=== PATIENT | female | born 1945 | race Caucasian/White ===

== ENCOUNTER 2017-06-22 14:30 | Emergency (ER) | payer MEDICARE, OTHER ==
[2017-06-22] MEDS ORDERED: NS 0.9% 1000 ML* 1,000 ML IV SCH (14:45)
[2017-06-22 15:02] LABS: Hematocrit 36 % (35-47); Hemoglobin 11.9 g/dl (12.0-16.0); Mean Corpuscular HGB Conc 34 g/dl (31-36); Mean Corpuscular Hemoglobin 31 pg (27-31); Mean Corpuscular Volume 92 fL (80-97); Mean Platelet Volume 8 um3 (7.4-10.4); Red Blood Count 3.88 10^6/ul (4.0-5.4); Red Cell Distribution Width 14 % (10.5-15); White Blood Count 12.1 10^3/ul (3.5-10.8)
--- NOTE | 2017-06-22 15:25 | RAD ---
Indication: Choking with hypoxia. No aspiration. History of scleroderma. Comparison: October 06, 2016 chest radiograph. April 30, 2011 chest radiograph. Technique: Upright AP 1450 hours Report: Tunneled LEFT chest wall central venous catheter with tip at level of the superior vena cava directed central. Severe prominence of the interstitial markings similar to the prior chest radiograph. New consolidation at the LEFT greater than RIGHT lung bases which may represent progression of interstitial disease or pneumonia. Grossly clear pleural spaces. Negative for pneumothorax. Negative for cardiomegaly. Unremarkable central pulmonary vasculature. Retrocardiac hiatal hernia. Extensive soft tissue calcifications most marked about the LEFT shoulder without significant interval change. IMPRESSION: 1. New alveolar consolidation at the LEFT greater than RIGHT lung base is concerning for pneumonia. 2. Interstitial lung disease and extensive soft tissue calcifications consistent with manifestations of scleroderma.
[2017-06-22 15:28] LABS: Albumin 4.3 g/dL (3.2-5.2); C Reactive Protein 1.87 mg/L (< 5.00); Calcium 8.9 mg/dL (8.6-10.3); EGFR African American 172.7 (>60); EGFR Non-African American 134.3 (>60); Globulin 3.2 g/dL (2-4); Potassium 3.7 mmol/L (3.5-5.0); Total Bilirubin 0.8 mg/dL (0.2-1.0); Total Protein 7.5 g/dL (6.4-8.9)
--- NOTE | 2017-06-22 17:09 | ED ---
Brisa Sullivan Thomas, scribed for Efra Glover MD on 06/22/17 at 1445 . Respiratory - HPI Summary HPI Summary: The pt is a 71 y/o F BIB EMS s/p aspiration of a magnesium pill. She was taking her medications while eating lunch when the pill became lodged in her respiratory tract. She denies that any food became lodged. Per EMS, the pill was not able to become dislodged by back thrusts of Heimlich maneuver. Per EMS, the patient was pretty close to becoming unresponsive in the field and she was talking very little, with her SpO2 in the low 80s. Per EMS, the SpO2 raised to 100 on nonrebreather mask. However, the patients condition improved en route to [facility] [place], and at time of examination she is talking with an occasional cough. - History of Current Complaint Stated Complaint: CHOKING Hx Obtained From: Patient Onset/Duration: Sudden Onset, Lasting Hours - shortly STATE MANAGER, Still Present Timing: Constant Character: Cough (Nonproductive) Aggravating Factor(s): Nothing Alleviating Factor(s): Nothing - Allergy/Home Medications Allergies/Adverse Reactions: Allergies Allergy/AdvReac Type Severity Reaction Status Date / Time Erythromycin Allergy Unknown Unknown Verified 05/07/17 16:01 Reaction Details Honey Allergy Unknown Unknown Verified 05/07/17 16:01 Reaction Details Denosumab [From Prolia] Allergy Rash Verified 05/07/17 16:01 Mouse Protein [From Prolia] Allergy Rash Verified 05/07/17 16:01 PMH/Surg Hx/FS Hx/Imm Hx Previously Healthy: No Endocrine/Hematology History: Reports: Hx Thyroid Disease - hypo, Other Endocrine/Hematological Disorders - hypo thyroidism Denies: Hx Diabetes Cardiovascular History: Reports: Hx Valvular Heart Disease - aortic stenosis, valve replacement 10/09, Other Cardiovascular Problems/Disorders - "LEAKY VALVE " Denies: Hx Hypertension, Hx Pacemaker/ICD Respiratory History: Reports: Other Respiratory Problems/Disorders - pulmonary HTN Denies: Hx Asthma, Hx Chronic Obstructive Pulmonary Disease (COPD) GI History: Reports: Hx Gastrointestinal Bleed, Other GI Disorders - " 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 Denies: Hx Ulcer History: Reports: Other Problems/Disorders Denies: Hx Dialysis, Hx Renal Disease Musculoskeletal History: Reports: Hx Osteoporosis, Other Musculoskeletal History - clavical fx, raynauds, sclera derma, Denies: Hx Back Problems Sensory History: Reports: Hx Contacts or Glasses - reading glasses only Denies: Hx Cataracts, Hx Deafness, Hx Hearing Aid Opthamlomology History: Reports: Hx Contacts or Glasses - reading glasses only Denies: Hx Cataracts Neurological History: Reports: Hx Headaches, Hx Migraine, Other Neuro Impairments/Disorders - scleroderma Denies: Hx Dementia, Hx Seizures, Hx Transient Ischemic Attacks (TIA) Psychiatric History: Denies: Hx Panic Disorder - Cancer History Hx Chemotherapy: No Hx Radiation Therapy: No - Surgical History Surgery Procedure, Year, and Place: hands surgeries - JOINT FUSION & PINS ( PINS REMOVED) , TONSILECTOMY. growth in bladder removed, INFUSA PORT. AORTIC VALVE REPLACEMENT -MEDTRONIC -EVOLUTR- 29- SERIAL # [id number] - CORE VALVE EVOLUT R- TRANCATHETER AORTIC VALVE - CALL FOR MRI INFO [phone] ( OP NOTE SCANNED INTO PT'S EMR)SAFE TO 3T Hx Anesthesia Reactions: No Infectious Disease History: Reports: Hx Shingles Denies: Hx Clostridium Difficile, Hx Hepatitis, Hx Human Immunodeficiency Virus (HIV), Hx of Known/Suspected MRSA, Hx Tuberculosis, Hx Known/Suspected VRE , Hx Known/Suspected VRSA, History Other Infectious Disease - Family History Known Family History: Positive: Other - POS: [place] - Social History Alcohol Use: Occasionally Alcohol Amount: wine Substance Use Type: Reports: None Smoking Status (MU): Never Smoked Tobacco Have You Smoked in the Last Year: No Review of Systems Positive: Cough, Other - POS: aspiration of magnesium pill Neurological: Other - POS: minimally responsive en route to [facility], per EMS All Other Systems Reviewed And Are Negative: Yes Physical Exam Triage Information Reviewed: Yes Vital Signs On Initial Exam: Temp 99.1, HR 66, RR 16, SaO2 99, BP 128/65 Vital Signs Reviewed: Yes Appearance: Positive: Well-Appearing, No Pain Distress, Well-Nourished Skin: Positive: Warm, Skin Color Reflects Adequate Perfusion, Dry Head/Face: Positive: Normal Head/Face Inspection Eyes: Positive: EOMI, MIGUEL ANGEL ENT: Positive: Normal ENT inspection Neck: Positive: Supple, Nontender Respiratory/Lung Sounds: Positive: Clear to Auscultation, Breath Sounds Present - on both sides, Stridor - minimal, Other - She is in mild respiratory distress. She can talk. Cardiovascular: Positive: RRR Abdomen Description: Positive: Nontender, Soft Musculoskeletal: Positive: Normal, Strength/ROM Intact Neurological: Positive: Normal, Sensory/Motor Intact, Alert, Oriented to Person Place, Time Psychiatric: Positive: Affect/Mood Appropriate Diagnostics - Vital Signs Temp 99.1, HR 66, RR 16, SaO2 99, BP 128/65 - Laboratory Lab Results: Lab Results 06/22/17 06/22/17 06/22/17 Range/Units 14:50 14:50 14:50 WBC 12.1 H (3.5-10.8) 10^3/ul RBC 3.88 L (4.0-5.4) 10^6/ul Hgb 11.9 L (12.0-16.0) g/dl Hct 36 (35-47) % MCV 92 (80-97) fL MCH 31 (27-31) pg MCHC 34 (31-36) g/dl RDW 14 (10.5-15) % Plt Count 301 (150-450) 10^3/ul MPV 8 (7.4-10.4) um3 Neut % (Auto) 77.6 (38-83) % Lymph % (Auto) 12.3 L (25-47) % Glascock % (Auto) 5.4 (1-9) % Eos % (Auto) 3.9 (0-6) % Baso % (Auto) 0.8 (0-2) % Absolute Neuts (auto) 9.4 H (1.5-7.7) 10^3/ul Absolute Lymphs (auto) 1.5 (1.0-4.8) 10^3/ul Absolute Monos (auto) 0.7 (0-0.8) 10^3/ul Absolute Eos (auto) 0.5 (0-0.6) 10^3/ul Absolute Basos (auto) 0.1 (0-0.2) 10^3/ul Absolute Nucleated RBC 0 10^3/ul Nucleated RBC % 0 INR (Anticoag Therapy) 1.02 (0.89-1.11) APTT 31.2 (26.0-36.3) seconds Sodium 136 (133-145) mmol/L Potassium 3.7 (3.5-5.0) mmol/L Chloride 103 (101-111) mmol/L Carbon Dioxide 23 (22-32) mmol/L Anion Gap 10 (2-11) mmol/L BUN 17 (6-24) mg/dL Creatinine 0.46 L (0.51-0.95) mg/dL Est GFR ( Amer) 172.7 (>60) Est GFR (Non-Af Amer) 134.3 (>60) BUN/Creatinine Ratio 37.0 H (8-20) Glucose 96 (70-100) mg/dL Lactic Acid (0.5-2.0) mmol/L Calcium 8.9 (8.6-10.3) mg/dL Total Bilirubin 0.80 (0.2-1.0) mg/dL AST 26 (13-39) U/L ALT 14 (7-52) U/L Alkaline Phosphatase 65 (34-104) U/L C-Reactive Protein 1.87 (< 5.00) mg/L Total Protein 7.5 (6.4-8.9) g/dL Albumin 4.3 (3.2-5.2) g/dL Globulin 3.2 (2-4) g/dL Albumin/Globulin Ratio 1.3 (1-3) 06/22/17 Range/Units 14:50 WBC (3.5-10.8) 10^3/ul RBC (4.0-5.4) 10^6/ul Hgb (12.0-16.0) g/dl Hct (35-47) % MCV (80-97) fL MCH (27-31) pg MCHC (31-36) g/dl RDW (10.5-15) % Plt Count (150-450) 10^3/ul MPV (7.4-10.4) um3 Neut % (Auto) (38-83) % Lymph % (Auto) (25-47) % Glascock % (Auto) (1-9) % Eos % (Auto) (0-6) % Baso % (Auto) (0-2) % Absolute Neuts (auto) (1.5-7.7) 10^3/ul Absolute Lymphs (auto) (1.0-4.8) 10^3/ul Absolute Monos (auto) (0-0.8) 10^3/ul Absolute Eos (auto) (0-0.6) 10^3/ul Absolute Basos (auto) (0-0.2) 10^3/ul Absolute Nucleated RBC 10^3/ul Nucleated RBC % INR (Anticoag Therapy) (0.89-1.11) APTT (26.0-36.3) seconds Sodium (133-145) mmol/L Potassium (3.5-5.0) mmol/L Chloride (101-111) mmol/L Carbon Dioxide (22-32) mmol/L Anion Gap (2-11) mmol/L BUN (6-24) mg/dL Creatinine (0.51-0.95) mg/dL Est GFR ( Amer) (>60) Est GFR (Non-Af Amer) (>60) BUN/Creatinine Ratio (8-20) Glucose (70-100) mg/dL Lactic Acid 1.7 (0.5-2.0) mmol/L Calcium (8.6-10.3) mg/dL Total Bilirubin (0.2-1.0) mg/dL AST (13-39) U/L ALT (7-52) U/L Alkaline Phosphatase (34-104) U/L C-Reactive Protein (< 5.00) mg/L Total Protein (6.4-8.9) g/dL Albumin (3.2-5.2) g/dL Globulin (2-4) g/dL Albumin/Globulin Ratio (1-3) Result Diagrams: 06/22/17 14:50 06/22/17 14:50 Lab Statement: Any lab studies that have been ordered have been reviewed, and results considered in the medical decision making process. - Radiology CXR Xray Interpretation: Positive (See Comments) - shows 1. New alveolar consolidation at the LEFT greater than RIGHT lung base is concerning for pneumonia. 2. Interstitial lung disease and extensive soft tissue calcifications consistent with manifestations of scleroderma. Radiology Interpretation Completed By: Radiologist Disposition - Course Course Of Treatment: PATIENT HAD A SECOND HYPOXIC EPISODE IN THE ED THEN IMPROVED BACK TO NORMAL. PATIENT FEELS SHE FINALLY COUGHED UP THE PILL AND THEN SWALLOWED IT. DRANK WATER AND AMBULATED IN ED, BACK TO NORMAL AND WISHES TO GO HOME. - Diagnoses Provider Diagnoses: Aspiration of foreign body Discharge - Discharge Plan Condition: Stable Disposition: HOME Patient Education Materials: Aspiration Precautions (ED) Referrals: Destiny Bird MD [Primary Care Provider] - Additional Instructions: FOLLOW UP WITH YOUR DOCTOR. RETURN TO THE EMERGENCY DEPARTMENT FOR ANY WORSENING OF YOUR CONDITION; CHEST PAIN, SHORTNESS OF BREATH, YOU FEEL ILL OR QUESTIONS OR CONCERNS. The documentation as recorded by the Brisa jacobson Thomas accurately reflects the service I personally performed and the decisions made by me, Efra Glover MD.
[2017-06-22 17:16] VITALS: BP 122/60
== END 2017-06-22 17:16 | disposition home or self-care (01) ==
LOC: ED 14:30
DX: T17.998A Other foreign object in respiratory tract, part unspecified causing other injury, initial encounter (principal); R05 Cough; X58.XXXA Exposure to other specified factors, initial encounter; Y93.9 Activity, unspecified; Y92.89 Other specified places as the place of occurrence of the external cause; Z86.79 Personal history of other diseases of the circulatory system
CPT/HCPCS: 36415; 71010; 80053; 83605; 85025; 85610; 85730; 86140; 99283

== ENCOUNTER 2018-05-03 14:22 | Emergency (ER) | payer MEDICARE, OTHER ==
[2018-05-03 15:03] VITALS: BP 113/75
--- NOTE | 2018-05-03 15:30 | UC ---
Rachid Sullivan Elizabeth, scribed for Efra Glover MD on 05/03/18 at 1519 . Eye Complaint HPI - HPI Summary HPI Summary: This patient is a 72 year old F presenting to [facility] with a chief complaint of red lower eyelid swelling, redness, and pain since 3 days ago. The patient denies any trauma. The patient rates the pain 1/10 in severity. Symptoms aggravated by nothing. Symptoms alleviated by nothing. Patient denies any crusting, rhinorrhea, or drainage. Patient has a hx of scleroderma. - History of Current Complaint Chief Complaint: UCEye Stated Complaint: EYE COMPLAINT Time Seen by Provider: 05/03/18 15:10 Hx Obtained From: Patient Onset/Duration: Sudden Onset, Lasting Days - 3 days, Still Present Timing: Constant Severity Initially: Mild Severity Currently: Mild Pain Intensity: 1 Pain Scale Used: 0-10 Numeric Location of Injury: Eye Lid (lower) Aggravating Factor(s): Nothing Alleviating Factor(s): Nothing Associated Signs And Symptoms: Positive: Swelling. Negative: Drainage (Clear), Drainage (Purulent) - Allergies/Home Medications Allergies/Adverse Reactions: Allergies Allergy/AdvReac Type Severity Reaction Status Date / Time erythromycin base Allergy Unknown Unknown Verified 05/03/18 15:03 Reaction Details denosumab Allergy Rash Verified 05/03/18 15:03 honey Allergy Unknown Verified 05/03/18 15:03 Reaction Details Home Medications: Home Medications Zolpidem TAB* [Ambien*] 05/03/18 [History] PMH/Surg Hx/FS Hx/Imm Hx - Additional Past Medical History Additional PMH: scleroderma - Surgical History Surgical History: Yes Surgery Procedure, Year, and Place: hands surgeries - JOINT FUSION & PINS ( PINS REMOVED) , TONSILECTOMY. growth in bladder removed, INFUSA PORT. AORTIC VALVE REPLACEMENT -MEDTRONIC -EVOLUTR- 29-US SERIAL # [id number] - CORE VALVE EVOLUT R- TRANCATHETER AORTIC VALVE - CALL FOR MRI INFO [phone] ( OP NOTE SCANNED INTO PT'S EMR)SAFE TO 3T - Family History Known Family History: Positive: Other - POS: [place] Family History: NON CONTRIBUTORY - Social History Alcohol Use: Occasionally Alcohol Amount: wine Substance Use Type: None Smoking Status (MU): Never Smoked Tobacco Have You Smoked in the Last Year: No - Immunization History Most Recent Influenza Vaccination: 06/2016 Most Recent Tetanus Shot: unk Most Recent Pneumonia Vaccination: 06/2015 Review of Systems Skin: Other - right lower eyelid swelling Eyes: Negative - negative drainage, Eye Redness - right lower eyelid redness ENT: Negative - negative rhinorrhea Respiratory: Negative - negative cough All Other Systems Reviewed And Are Negative: Yes Physical Exam - Summary Physical Exam Summary: General: well-appearing, no pain distress Skin: warm, color reflects adequate perfusion, dry Head: normal Eyes: EOMI, MIGUEL ANGEL, right lower eyelid erythema and swelling, no active drainage, no scleral injection, no hyphema. The area of erythema is 1cm by 4cm ENT: normal Neck: supple, nontender Respiratory: CTA, breath sounds present Cardiovascular: RRR Abdomen: soft, nontender Bowel: present Musculoskeletal: normal, strength/ROM intact Neurological: sensory/motor intact, A&O x3 Psychological: affect/mood appropriate Triage Information Reviewed: Yes Vital Signs: Initial Vital Signs Temp 99.7 F 05/03/18 14:55 Pulse 61 05/03/18 14:55 Resp 18 05/03/18 14:55 BP 113/75 05/03/18 14:55 Pulse Ox 98 05/03/18 14:55 Vital Signs Reviewed: Yes Eye Complaint Course/Dx - Course Course Of Treatment: F/U PMD OR OPHTHALMOLOGY IF NOT IMPROVED; RECHECK SOONER IF WORSE. - Differential Dx/Diagnosis Provider Diagnoses: RIGHT LOWER EYE LID STYE Discharge - Sign-Out/Discharge Documenting (check all that apply): Discharge/Admit/Transfer - Discharge Plan Condition: Stable Disposition: HOME Discharge Disposition Comment: discharge home Prescriptions: Sulfacetamide 10 % OPTH.EDWIN* [Sulamyd 10% Opth*] 1 drop RIGHT EYE Q4H #1 btl Patient Education Materials: Billy (ED) Referrals: Destiny Bird MD [Primary Care Provider] - Additional Instructions: FOLLOW UP WITH YOUR DOCTOR OR OPHTHALMOLOGY IF NOT COMPLETELY IMPROVED. GET RECHECKED FOR ANY WORSENING OF YOUR CONDITION OR QUESTIONS OR CONCERNS. - Billing Disposition and Condition Condition: STABLE Disposition: Home The documentation as recorded by the Rachid jacobson Elizabeth accurately reflects the service I personally performed and the decisions made by me, Efra Glover MD.
== END 2018-05-03 15:30 | disposition home or self-care (01) ==
LOC: UCEAST 14:22
DX: H00.022 Hordeolum internum right lower eyelid (principal); Z91.018 Allergy to other foods; Z88.1 Allergy status to other antibiotic agents; Z88.8 Allergy status to other drugs, medicaments and biological substances
CPT/HCPCS: 99212; G0463

== ENCOUNTER 2019-04-13 17:42 | Emergency (ER) | payer MEDICARE, OTHER ==
--- NOTE | 2019-04-13 18:15 | UC ---
UC General HPI - HPI Summary HPI Summary: 73-year-old woman comes in with a chief complaint of feeling weak and not well all day. She does have chest congestion. She also gets recurrent cellulitis. She has some anterior left knee pain and skin. She has scleroderma. Feels lightheaded when she tries to stand up. She's had some chills. - History of Current Complaint Chief Complaint: UCDizziness Stated Complaint: DIZZY, NO APPETITE, HIGH BP Time Seen by Provider: 04/13/19 17:57 Hx Last Menstrual Period: post Pain Intensity: 0 - Allergy/Home Medications Allergies/Adverse Reactions: Allergies Allergy/AdvReac Type Severity Reaction Status Date / Time erythromycin base Allergy Unknown Unknown Verified 03/29/19 14:13 Reaction Details denosumab Allergy Rash Verified 03/29/19 14:13 honey Allergy Unknown Verified 03/29/19 14:13 Reaction Details PMH/Surg Hx/FS Hx/Imm Hx Previously Healthy: No - sceloderma Endocrine History: Hypothyroidism GI/ History: Gastroesophageal Reflux - Surgical History Surgical History: Yes Surgery Procedure, Year, and Place: hands surgeries - JOINT FUSION & PINS ( PINS REMOVED) , TONSILECTOMY. growth in bladder removed, INFUSA PORT. AORTIC VALVE REPLACEMENT -MEDTRONIC -EVOLUTR- 29-US SERIAL # [id number] - CORE VALVE EVOLUT R- TRANCATHETER AORTIC VALVE - CALL FOR MRI INFO [phone] ( OP NOTE SCANNED INTO PT'S EMR)SAFE TO 3T - Family History Known Family History: Positive: Other - POS: [place] Family History: NON CONTRIBUTORY - Social History Alcohol Use: Daily Alcohol Amount: wine Substance Use Type: None Smoking Status (MU): Former Smoker Have You Smoked in the Last Year: No - Immunization History Most Recent Influenza Vaccination: 06/2016 Most Recent Tetanus Shot: unk Most Recent Pneumonia Vaccination: 06/2015 Review of Systems All Other Systems Reviewed And Are Negative: Yes Constitutional: Positive: Chills, Fatigue Skin: Positive: Rash Eyes: Positive: Negative ENT: Positive: Negative Respiratory: Positive: Cough, Other - see hpi Cardiovascular: Positive: Negative Gastrointestinal: Positive: Abdominal Pain - mild diffuse, Nausea Genitourinary: Positive: Negative Motor: Positive: Decreased ROM - chronic from scleroderma Neurovascular: Positive: Negative Musculoskeletal: Positive: Decreased ROM - chronic from scleroderma Neurological: Positive: Negative Psychological: Positive: Negative Is Patient Immunocompromised?: No Physical Exam Triage Information Reviewed: Yes Appearance: No Pain Distress, Ill-Appearing - mild, Thin Vital Signs: Initial Vital Signs Temp 100.7 F 04/13/19 17:54 Pulse 70 04/13/19 17:54 Resp 16 04/13/19 17:54 BP 101/53 04/13/19 17:54 Pulse Ox 94 04/13/19 17:54 Vital Signs Reviewed: Yes Eye Exam: Normal ENT: Negative: Muffled voice, Hoarse voice Neck: Positive: Supple Respiratory: Positive: No respiratory distress, Rhonchi Cardiovascular: Positive: RRR Abdomen Description: Positive: Soft Bowel Sounds: Positive: Present Musculoskeletal: Positive: Other: - chronic scleroderma contractions Neurological: Positive: Alert Psychological: Positive: Age Appropriate Behavior Skin: Positive: Other - left knee anterior 2cm erythema Course/Dx - Course Course Of Treatment: C/O sepsis. To ED via Ambulance - Diagnoses Provider Diagnosis: Hypotension, Fever Discharge - Sign-Out/Discharge Documenting (check all that apply): Patient Departure All imaging exams completed and their final reports reviewed: No Studies - Discharge Plan Condition: Stable Disposition: TRANS HIGHER LVL OF CARE FAC Referrals: Destiny Bird MD [Primary Care Provider] - Additional Instructions: GO DIRECTLY TO THE EMERGENCY DEPARTMENT FOR FURTHER EVALUATION. - Billing Disposition and Condition Condition: STABLE Disposition: Trans Higher Lvl of Care Fac
[2019-04-13] MEDS ORDERED: NS 0.9% 1000 ML** 1,000 ML IV ONE (18:26)
[2019-04-13 18:35] VITALS: BP 95/42
[2019-04-13] MEDS ORDERED: Ibuprofen ADULT LIQ* 600 MG/30 ML UDC PO ONE (18:41)
== END 2019-04-13 19:02 | disposition short-term general hospital (02) ==
LOC: UCEAST 17:42
DX: I95.9 Hypotension, unspecified (principal); R50.9 Fever, unspecified; Z87.891 Personal history of nicotine dependence
CPT/HCPCS: 96360; 99213; A9270-GY; G0463

== ENCOUNTER 2019-04-13 19:10 | Inpatient (IN) | payer MEDICARE, OTHER ==
[2019-04-13] MEDS ORDERED: Acetaminophen TAB* 325 MG PO ONE (19:46)
[2019-04-13] MEDS ORDERED: Piperacillin/Tazobac ADVAN(*) 3.375 GM in NS 0.9% 100 ML* 100 ML IVPB ONE (19:47)
[2019-04-13] MEDS ORDERED: NS 0.9% IV ONE (19:47)
--- NOTE | 2019-04-13 19:56 | ED ---
Neurological HPI - HPI Summary HPI Summary: A 73 y/o female brought in by [facility] presents to [facility] with a chief complaint of weakness since this morning. She notes that she lost her appetite and has low energy. She also c/o fever, SOB and chest congestion but denies N/V/ D. She reports a Hx of Scleroderma and Stroke. She claims that she had her stroke when she was having an aortic valve replacement with a pig valve, and her speech has suffered but has been improving since the incident in 2014. She takes Plavix and denies taking Prednisone. She reports that she used to go to a clinic at [facility], but stopped going because it was not alleviating her symptoms. - History of Current Complaint Chief Complaint: EDWeakness Stated Complaint: WEAKNESS/LOSS OF APPETITE PER EMS Time Seen by Provider: 04/13/19 19:25 Hx Obtained From: Patient, Family/Animal Physiologist, EMS Hx Last Menstrual Period: post Onset/Duration: Sudden Onset, Started hours ago, Still Present Timing: Constant Onset Severity: Mild Current Severity: Mild Pain Intensity: 0 Pain Scale Used: 0-10 Numeric Character: Weak Aggravating: Nothing Alleviating: Nothing Associated Signs and Symptoms: Positive: Fever, Shortness of Breath - Additional Pertinent History Primary Care Physician: [id number] - Allergy/Home Medications Allergies/Adverse Reactions: Allergies Allergy/AdvReac Type Severity Reaction Status Date / Time erythromycin base Allergy Unknown Unknown Verified 04/13/19 19:23 Reaction Details denosumab Allergy Rash Verified 04/13/19 19:23 honey Allergy Unknown Verified 04/13/19 19:23 Reaction Details PMH/Surg Hx/FS Hx/Imm Hx Endocrine/Hematology History: Reports: Hx Thyroid Disease - hypo, Other Endocrine/Hematological Disorders - hypo thyroidism Denies: Hx Diabetes Cardiovascular History: Reports: Hx Valvular Heart Disease - aortic stenosis, valve replacement 10/09, Other Cardiovascular Problems/Disorders - "LEAKY VALVE " Denies: Hx Hypertension, Hx Pacemaker/ICD Respiratory History: Reports: Other Respiratory Problems/Disorders - pulmonary HTN Denies: Hx Asthma, Hx Chronic Obstructive Pulmonary Disease (COPD) GI History: Reports: Hx Gastrointestinal Bleed, Other GI Disorders - " 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 Denies: Hx Ulcer History: Reports: Other Problems/Disorders Denies: Hx Dialysis, Hx Renal Disease Musculoskeletal History: Reports: Hx Osteoporosis, Other Musculoskeletal History - clavical fx, raynauds, sclera derma, Denies: Hx Back Problems Sensory History: Reports: Hx Contacts or Glasses - reading glasses only Denies: Hx Cataracts, Hx Deafness, Hx Hearing Aid Opthamlomology History: Reports: Hx Contacts or Glasses - reading glasses only Denies: Hx Cataracts Neurological History: Reports: Hx Headaches, Hx Migraine, Other Neuro Impairments/Disorders - scleroderma Denies: Hx Dementia, Hx Seizures, Hx Transient Ischemic Attacks (TIA) Psychiatric History: Denies: Hx Panic Disorder - Cancer History Hx Chemotherapy: No Hx Radiation Therapy: No - Surgical History Surgery Procedure, Year, and Place: hands surgeries - JOINT FUSION & PINS ( PINS REMOVED) , TONSILECTOMY. growth in bladder removed, [facility]. AORTIC VALVE REPLACEMENT -MEDTRONIC -EVOLUTR- 29- SERIAL # [id number] - CORE VALVE EVOLUT R- TRANCATHETER AORTIC VALVE - CALL FOR MRI INFO [phone] ( OP NOTE SCANNED INTO PT'S EMR)SAFE TO 3T Hx Anesthesia Reactions: No Infectious Disease History: No Infectious Disease History: Reports: Hx Shingles Denies: Hx Clostridium Difficile, Hx Hepatitis, Hx Human Immunodeficiency Virus (HIV), Hx of Known/Suspected MRSA, Hx Tuberculosis, Hx Known/Suspected VRE , Hx Known/Suspected VRSA, History Other Infectious Disease, Traveled Outside the in Last 30 Days - Family History Known Family History: Positive: Cardiac Disease, Other - POS: [place] - Social History Alcohol Use: Daily Alcohol Amount: wine Substance Use Type: Reports: None Hx Tobacco Use: No Smoking Status (MU): Former Smoker Have You Smoked in the Last Year: No Review of Systems Positive: Fever, Fatigue, Other - positive: loss of appetite Positive: Shortness Of Breath, Other - positive: "chest congestion" Negative: Vomiting, Diarrhea, Nausea All Other Systems Reviewed And Are Negative: Yes Physical Exam - Summary Physical Exam Summary: VITAL SIGNS: Reviewed. GENERAL: Patient is a skinny FEMALE who is lying comfortable in the stretcher. Patient is not in any acute respiratory distress. HEAD AND FACE: No signs of trauma. No ecchymosis, hematomas or skull depressions. No sinus tenderness. EYES: PERRLA, EOMI x 2, No injected conjunctiva, no nystagmus. EARS: Hearing grossly intact. Ear canals and tympanic membranes are within normal limits. MOUTH: Oropharynx within normal limits. NECK: Supple, trachea is midline, no adenopathy, no JVD, no carotid bruit, no c- spine tenderness, neck with full ROM CHEST: Symmetric, no tenderness at palpation LUNGS: Clear to auscultation bilaterally. No wheezing or crackles. CVS: Regular rate and rhythm, S1 and S2 present, no murmurs or gallops appreciated. ABDOMEN: Soft, non-tender. No signs of distention. No rebound no guarding, and no masses palpated. Bowel sounds are normal. EXTREMITIES: multiple amputations of distal phalanx of hands, FROM in all major joints, no edema, no cyanosis or clubbing. NEURO: Alert and oriented x 3. No acute neurological deficits. Speech is normal and follows commands. SKIN: Dry and warm Triage Information Reviewed: Yes Vital Signs On Initial Exam: Initial Vitals Pulse BP Pulse Ox 64 89/48 96 04/13/19 19:19 04/13/19 19:19 04/13/19 19:19 Vital Signs Reviewed: Yes Diagnostics - Vital Signs Vital Signs Temp Pulse Resp BP Pulse Ox 04/13/19 19:21 100.2 F 60 19 90/47 99 04/13/19 19:19 64 89/48 96 - Laboratory Result Diagrams: 04/13/19 20:13 04/13/19 20:13 Lab Statement: Any lab studies that have been ordered have been reviewed, and results considered in the medical decision making process. - Radiology CXR Radiology Interpretation Completed By: ED Physician Summary of Radiographic Findings: Dense calcification with chronic interstitial lung disease consistent with scleroderma, no change from previous. Pending official imaging report. - CT Chest/abdomen/pelvis CT Interpretation Completed By: Radiologist Summary of CT Findings: Chest impression: 1. Multifocal right lung pneumonia. 2. Left lower lobe aspiration. 3. Enlarged left supraclavicular lymph nodes which may be reactive to the. chronic calcific process involving the joints. 4. Extensive calcific bursitis. Abdomen/pelvis impression: 1. Small bowel obstruction with transition at the terminal ileum. No. perforation or ischemia. 2. Bosniak type II renal cysts. No followup indicated. 3. Distal colonic diverticulosis. 4. Anterior thigh soft tissue ossifications possibly calcific tendinitis. ED physician has reviewed this imaging report. - EKG 19:57 Cardiac Rate: NL - 65 bpm EKG Rhythm: Sinus Rhythm Summary of EKG Findings: NSR at 65 bpm with LBBB which is old. Re-Evaluation - Re-Evaluation First Eval Re-Evaluation Time: 23:35 Change: Unchanged Comment: Discussed results and plan for admission. Course/Dx - Course Course Of Treatment: A 73 y/o female brought in by [facility] presents to [facility] with a chief complaint of weakness since this morning. The physical exam revealed that the patient was a skinny lady and has multiple amputations of distal phalanx of hands. EKG at 19:57 showed NSR at 65 bpm with LBBB which is old. CXR showed dense calcification with chronic interstitial lung disease consistent with scleroderma, no change from previous. Bloodwork, chemistries and urines obtained. WBC 34.3. In the ED course the patient was given Vancomycin IV, Tylenol PO, Piperacillin Sod/Tazobactam Sod IV and Sodium Chloride IV. Chest/abdomen/pelvis impression: Chest impression: 1. Multifocal right lung pneumonia. 2. Left lower lobe aspiration. 3. Enlarged left supraclavicular lymph nodes which may be reactive to the. chronic calcific process involving the joints. 4. Extensive calcific bursitis. Abdomen/pelvis impression: 1. Small bowel obstruction with transition at the terminal ileum. No. perforation or ischemia. 2. Bosniak type II renal cysts. No followup indicated. 3. Distal colonic diverticulosis. 4. Anterior thigh soft tissue ossifications possibly calcific tendinitis. The patient has no signs or symptoms of SBOs so she will not be treated for that but the patient got abx for PNA. Discussed case with Dr. Son, hospitalist, who accepted the patient for admission. The patient is agreeable with this plan. - Diagnoses Provider Diagnoses: Pneumonia - Physician Notifications Discussed Care Of Patient With: Jannette Sno Time Discussed With Above Provider: 23:31 Instructed by Provider To: Admit As Inpatient Discharge - Sign-Out/Discharge Documenting (check all that apply): Patient Departure - admit Patient Received Moderate/Deep Sedation with Procedure: No - Discharge Plan Condition: Fair Disposition: ADMITTED TO [facility] - Billing Disposition and Condition Condition: FAIR Disposition: Admitted to [facility] - Attestation Statements Document Initiated by Scribe: Yes Documenting Scribe: Vincent Peters Provider For Whom Scribe is Documenting (Include Credential): Chapincito Loomis MD Scribe Attestation: I, Vincent Peters, scribed for Chapincito Loomis MD on 04/14/19 at 0640. Scribe Documentation Reviewed: Yes Provider Attestation: The documentation as recorded by the steveeVincent accurately reflects the service I personally performed and the decisions made by me, Chapincito Loomis MD Status of Scribe Document: Viewed
[2019-04-13 20:23] LABS: Hematocrit 32 % (35-47); Hemoglobin 10.5 g/dL (12.0-16.0); Mean Corpuscular HGB Conc 33 g/dL (31-36); Mean Corpuscular Hemoglobin 29 pg (27-31); Mean Corpuscular Volume 89 fL (80-97); Mean Platelet Volume 7.5 fL (7.4-10.4); Platelet Count 317 10^3/uL (150-450); Red Blood Count 3.57 10^6 /uL (3.70-4.87); Red Cell Distribution Width 15 % (10-15); White Blood Count 34.3 10^3/uL (3.5-10.8)
[2019-04-13] MEDS ORDERED: Vancomycin(*) 1,000 MG in NS 0.9% 250 ML* 250 ML IVPB ONE (20:29)
[2019-04-13 20:32] LABS: Activated Partial Thrombo Time 33.6 seconds (26.0-38.0); INR 1.23 (0.82-1.09)
[2019-04-13 20:41] LABS: ABS Lymphocytes 0.7 10^3/ul (1.0-4.8); ABS Neutrophils 32.6 10^3/ul (1.5-7.7); Lymphocyte % 1.9 %
[2019-04-13 20:44] LABS: Troponin I 0.01 ng/mL (<0.04)
[2019-04-13 20:45] LABS: Albumin 3.3 g/dL (3.2-5.2); Albumin/Globulin Ratio 0.9 (1-3); BUN/Creatinine Ratio 35.6 (8-20); Calcium 8.1 mg/dL (8.6-10.3); EGFR African American 121.2 (>60); EGFR Non-African American 100.2 (>60); Globulin 3.6 g/dL (2-4); Potassium 3.7 mmol/L (3.5-5.0); Total Bilirubin 1.3 mg/dL (0.2-1.0); Total Protein 6.9 g/dL (6.4-8.9)
[2019-04-13] MEDS ORDERED: Iohexol 300* (CONTRAST) 10 ML SDV IV ONE (20:59)
[2019-04-13 21:09] LABS: C Reactive Protein 76.18 mg/L (<8.01)
[2019-04-13] MEDS ORDERED: NS 0.9% 1000 ML** 1,000 ML IV ONE (22:05)
[2019-04-13 23:40] LABS: Urine Appearance Clear; Urine Bilirubin Negative (Negative); Urine Blood Negative (Negative); Urine Color Yellow; Urine Glucose Negative (Negative); Urine Ketones Negative (Negative); Urine Nitrite Negative (Negative); Urine Protein Negative (Negative); Urine Specific Gravity 1.041 (1.010-1.030); Urine Urobilinogen Negative (Negative)
[2019-04-14] MEDS ORDERED: NS 0.9% 1000 ML** 1,000 ML IV ONE (00:16)
--- NOTE | 2019-04-14 00:48 | PN ---
Sepsis Event Evaluation Date of Evaluation: 04/14/19 Time of Evaluation: 12:31 Current Stage of Sepsis: Septic Shock Vital Signs - Last 12 Hours: Vital Signs - 12 hr Temp Pulse Resp BP Pulse Ox 04/14/19 00:38 98.3 F 65 22 102/54 95 04/14/19 00:19 53 16 102/54 95 04/14/19 00:00 55 23 90 04/13/19 23:49 53 17 103/54 96 04/13/19 23:19 57 18 113/60 90 04/13/19 23:00 57 24 94 04/13/19 22:49 57 23 105/64 93 04/13/19 22:45 98.3 F 04/13/19 22:26 64 19 99/52 93 04/13/19 22:00 61 18 96 04/13/19 21:49 64 24 102/54 91 04/13/19 21:20 62 15 89/46 95 04/13/19 21:00 63 20 94 04/13/19 20:50 99.4 F 04/13/19 20:49 61 14 96/51 95 04/13/19 20:33 98 04/13/19 20:19 66 19 93/48 94 04/13/19 20:00 62 22 94 04/13/19 19:49 63 17 90/47 95 04/13/19 19:21 100.2 F 60 19 90/47 99 04/13/19 19:19 64 89/48 96 Lactic Acid: 04/13/19 04/13/19 20:13 23:36 Lactic Acid 1.8 1.5 - Cardiopulmonary Exam Capillary Refill: < or = to 5 seconds Respiratory: Symmetrical Chest Expansion and Respiratory Effort, Clear to Auscultation Cardiovascular: NL Sounds; No Murmurs; No JVD, RRR, No Edema - Peripheral Pulse Exam Radial Pulses: Bilateral Normal - Skin Exam Skin Exam: Unremarkable - advanced scleroderma and skin tightening with chronic wounds - Linh Coma Scale Best Eye Response: 4 - Spontaneous Best Motor Response: 6 - Obeys Commands Best Verbal Response: 5 - Oriented Coma Scale Total: 15 Assess/Plan/Problems-Billing Assessment:
[2019-04-14] MEDS: NS 0.9% 1000 ML** 1,000 ML IV SCH ×3 (01:38→23:32)
[2019-04-14] MEDS: DOXYcycline CAP(*) 100 MG PO SCH ×3 (02:10→19:38)
--- NOTE | 2019-04-14 03:46 | HP ---
CC: Dr. Bird; Dr. Del Real * HISTORY AND PHYSICAL: DATE OF ADMISSION: 04/14/19 PRIMARY CARE PROVIDER: Dr. Bird. POWER BALLAST MACHINE OPERATOR: Dr. Del Real. CHIEF COMPLAINT: Weakness. HISTORY OF PRESENT ILLNESS: Ms. Denise is a 73-year-old female who has a history of advanced scleroderma with calcinosis, digital ulcerations, and larger ulcerations overlying the medial malleoli bilaterally and the right knee , as well as history of hypothyroidism, pulmonary hypertension, and past CVA, who presented to the emergency room from urgent care with complaints of weakness and fever. The patient states that suddenly on 04/13/19 she developed decreased energy and weakness. She noted a poor appetite. She denied any abdominal discomfort, but states that she just did not want to eat. She does note that she had a cold over the last 1 week or so, but thought it had resolved. Over the last couple of days, however, she has had a cough and has been bringing up small amounts of yellow sputum. She does note that it is somewhat hard for her to bring up the mucus. She also admits mild shortness of breath. She did not have any fevers at home; however, in the emergency room, was found to have a fever of 100.2. The patient denies any sick contacts. PAST MEDICAL HISTORY: 1. Scleroderma. 2. Raynaud's. 3. Calcinosis. 4. Chronic wounds of the digits, medial malleoli, right knee. 5. Hypothyroidism. 6. GERD. 7. Pulmonary hypertension. 8. CVA in 2016. PAST SURGICAL HISTORY: 1. TAVR in 2014. 2. Port placement. 3. Tonsillectomy. 4. Bilateral hand surgeries. MEDICATIONS: 1. Ambien 5 mg p.o. q.h.s. p.r.n. insomnia. 2. Zinc 25 mg p.o. daily. 3. Protonix 40 mg p.o. daily. 4. Mupirocin apply topically twice daily to digital wounds. 5. Magnesium oxide 250 mg p.o. daily. 6. Levothyroxine 50 mcg p.o. daily. 7. Plavix 75 mg p.o. daily. 8. Calcium plus D 1 tab p.o. b.i.d. 9. Aspirin 81 mg p.o. daily. ALLERGIES: ERYTHROMYCIN TOPICAL, DENOSUMAB, HONEY. FAMILY HISTORY: Mother had history of dementia. Dad had a history of coronary artery disease. SOCIAL HISTORY: The patient is a nonsmoker. She does drink a glass of wine nightly with dinner. She worked at [employer] in the [place] office. She is . She has no 2 children. She indicates that her , Ed, would be her health care proxy. REVIEW OF SYSTEMS: A complete 11-system review of systems was obtained. Pertinent positives and negatives are as per HPI and in addition, the patient does complain of chronic difficulty with swallowing. She has the chronic wounds related to her calcinosis. PHYSICAL EXAMINATION GENERAL: The patient is a well-developed, elderly female with advanced scleroderma and skin tightening of the face, which limits oral movement. VITAL SIGNS: Blood pressure 102/54, pulse 65, respirations 24, temp 98.3, O2 sat 91% on 2 L. HEENT: Pupils are equal and round. Extraocular muscles are intact. Oropharynx is dry, but clear. There is no submandibular, cervical or supraclavicular adenopathy. Thyroid is not enlarged. No thyroid nodules noted. PULMONARY: Right lower lobe is diminished, otherwise lungs are clear. CARDIAC: Normal S1 and S2. Heart rate is regular. There are no murmurs. There is no lower extremity edema. ABDOMEN: Bowel sounds are present. Abdomen is soft, nontender, nondistended. MUSCULOSKELETAL: There are joint deformities, most notably of the hands. Range of motion is limited due to her scleroderma. NEUROLOGIC: Cranial nerves II through XII appeared to be grossly intact. Speech is mildly dysarthric, but likely related to her poor oral movement and dry tongue. SKIN: The patient has numerous telangiectasias noted to her face. Skin is very taut over her face impairing her ability to open her mouth wide. There is very tight skin over her digits and joints in general. There are numerous small wounds noted to multiple digits. There is a large shallow ulceration overlying both medial malleoli. There is healthy-appearing granulation tissue at the base of the wound. There is surrounding erythema; however, that erythema is not hot and the patient states is at baseline. There are almost punched-out appearing ulcerations overlying the right knee, more specifically the infrapatellar area. PSYCH: The patient is alert. She is oriented x3. Affect appears appropriate. DIAGNOSTIC STUDIES/LAB DATA: WBC 34.3, hemoglobin 10.5, hematocrit 32, platelets 317. INR 1.23. Sodium 135, potassium 3.7, chloride 102, CO2 of 22, BUN 21, creatinine 0.59, glucose 122, lactic acid 1.8 and then 1.5, calcium 8.1 , bilirubin 1.3, AST 33, ALT 39, alk phos 244. CPK 65, troponin 0.01. CRP 76.18. Albumin 3.3. Urinalysis revealed specific gravity of 1.041 and otherwise negative for signs of infection. EKG reveals normal sinus rhythm with a left bundle-branch block. This is unchanged from 2016. Chest x-ray to my interpretation reveals patchy interstitial changes in both lungs. This is relatively unchanged from 2016. There is significant joint deformity involving the left shoulder. CT chest, abdomen and pelvis reveals multifocal right lung pneumonia and possible left lower lobe atelectasis. There are enlarged left supraclavicular lymph nodes, which may be reactive to the chronic calcific process involving the joints. There is extensive calcific bursitis. CT of the abdomen and pelvis is read as small bowel obstruction with transition at the terminal ileum (patient gives no history or signs of small bowel obstruction). There is a Bosniak type 2 renal cyst. There is distal colonic diverticulosis. Anterior thigh soft tissue ossifications and possible calcific tendonitis are noted. ASSESSMENT AND PLAN: Ms. Denise is a 73-year-old female who has a history of advanced scleroderma, pulmonary hypertension, hypothyroidism, and past cerebrovascular accident as well as chronic wounds, who presented to the emergency room with complaints of sudden onset of weakness though in the setting of cough and sputum production and is being admitted for septic shock secondary to probable right-sided pneumonia. 1. Septic shock secondary to right-sided pneumonia. At this point, the patient has MAPs that are much lower than her baseline reviewing old hospital visits and outpatient visits. She appears to be dehydrated based on exam with dry oral mucosa and very concentrated urine. At this point, I do not believe that the patient has been adequate resuscitated to warrant initiating vasopressors. The patient has received vancomycin and Zosyn in the emergency room. I am going to change her antibiotic regimen to ceftriaxone and doxycycline. She will receive the doxycycline now and ceftriaxone at approximately 4 a.m. Urine for Strep pneumoniae and legionella antigens will be sent. Sputum culture has been ordered. The patient's lactic acid at this point is normal. We will monitor her vital signs every 4 hours. Septic shock reassessment note is documented separately in [facility]. The patient will have followup white blood cell count later this morning. 2. Numerous wounds of the digits, bilateral ankles, and right knee. These do not appear to be infected at this time. Local wound care will continue with mupirocin to small digital wounds and the patient's treatment regimen for the larger wounds involving her medial malleoli bilaterally in the right knee should be obtained from the wound clinic in the morning. 3. Scleroderma. The patient has advanced disease. We will continue supportive care. 4. Hypothyroidism. Continue Synthroid. 5. Past cerebrovascular accident. Continue aspirin and Plavix. 6. DVT prophylaxis. According to the adult thrombosis prophylaxis risk factor assessment guide, the patient has a total risk factor score of 2 making her the moderate risk. Lovenox 30 mg subcutaneous daily will utilized as DVT prophylaxis. 7. Code status is full. TIME SPENT: Sixty five minutes was spent admitting this patient. [id number]/CPS #: [id number] MTDD
[2019-04-14] MEDS: cefTRIAXone(*) 1 GM in NS 0.9% 50 ML* 50 ML IVPB SCH (04:20)
[2019-04-14] MEDS: Levothyroxine TAB* 50 MCG TAB PO SCH ×2 (07:11→11:47)
[2019-04-14] MEDS: Clopidogrel TAB* 75 MG PO SCH (09:05)
[2019-04-14] MEDS: Pantoprazole TAB * 40 MG TAB PO SCH (09:06)
[2019-04-14] MEDS: Mupirocin 2% OINT* TUBE TOPICAL SCH ×2 (09:06→19:46)
[2019-04-14] MEDS: Aspirin EC TAB* 81 MG TAB.EC PO SCH (09:06)
--- NOTE | 2019-04-14 12:52 | PN ---
Subjective Date of Service: 04/14/19 Interval History: VS: afebrile; requiring 2L O2 Pt continues to have loose, nonproductive cough. She reports no subjective fevers, chills. She reports SOB and is requiring O2, which is not her baseline. Pt has multiple chronic wounds on LE that she reports have not changed in appearance recently. Objective Active Medications: Aspirin (Aspirin Ec Tab*) 81 mg PO DAILY NEREYDA Clopidogrel Bisulfate (Plavix Tab*) 75 mg PO DAILY NEREYDA Doxycycline Hyclate (Vibramycin Cap(*)) 100 mg PO BID NEREYDA Enoxaparin Sodium (Lovenox(*)) 30 mg SUBCUT Q24H NEREYDA Ceftriaxone Sodium 1 gm/ (Sodium Chloride) 50 mls @ 200 mls/hr IVPB Q24H NEREYDA Sodium Chloride (Ns 0.9% 1000 Ml) 1,000 mls @ 100 mls/hr IV PER RATE NEREYDA Levothyroxine Sodium (Synthroid Tab*) 50 mcg PO DAILY@0600 NEREYDA Mupirocin (Bactroban 2 % Oint*) 1 applic TOPICAL BID NEREYDA Pantoprazole Sodium (Protonix Tab*) 40 mg PO DAILY NEREYDA Zolpidem Tartrate (Ambien Tab*) 5 mg PO BEDTIME PRN Vital Signs: Temp Pulse Resp BP Pulse Ox 97.8 F 62 18 102/70 96 04/14/19 06:00 04/14/19 08:02 04/14/19 09:25 04/14/19 08:02 04/14/19 09:25 Oxygen Devices in Use Now: Nasal Cannula Appearance: Pt is sitting up in bed with HOB elevated. She is thin and frail. She has contractures and thinning skin of hands, feet; thinning skin of face. She is cooperative and appropriate and appears to be in no acute distress. Eyes: No Scleral Icterus, PERRLA Ears/Nose/Mouth/Throat: NL Teeth, Lips, Gums, Clear Oropharnyx Neck: NL Appearance and Movements; NL JVP, Trachea Midline Respiratory: Symmetrical Chest Expansion and Respiratory Effort, - - L lung rhonchi throughout. B/l lungs without wheeze, rales Cardiovascular: NL Sounds; No Murmurs; No JVD, RRR, No Edema Abdominal: NL Sounds; No Tenderness; No Distention, No Hepatosplenomegaly Extremities: No Edema, - - B/l UE with clubbing, cyanosis, contractures, and thinning skin. B/l LE with clubbing, thinking skin, contractures. Multiple wounds: R anterior knww with 3 eroded skin resulting in shallow wounds with granular tissue, without surrounding erythema. R strange with small, shallow wound 1.5cm length. B/l medial malleoli with large wounds with granular tissue surrounded by small area of erythema, skin without temperature change. Neurological: Alert and Oriented x 3 Result Diagrams: 04/13/19 20:13 04/13/19 20:13 Assess/Plan/Problems-Billing Assessment: 73 yof PMHx scleroderma, raynaud's, calcinosis, chronic wounds of distal medial malleoli and R knee, hypothyroid, GERD, pulmonary hypertension, and CVA in 2016 who presents to ER in septic shock due to R lobe pneumonia. - Patient Problems (1) Pneumonia Comment: -Continued cough, leukocytosis; afebrile -Urine for legionella, S. pneumo ordered -Sputum culture ordered -Continue Ceftriaxone, Doxy (2) Septic shock Comment: -Leukocytosis, hypotension, febrile, without lactic acidosis; did not require pressors -Fluid bolus improved BP; will continue maintainence fluids for now -Septic shock resolved -BS ordered, pending -Continue to monitor (3) Chronic wound of extremity Comment: -Wound on R knee and b/l LE; last wound clinic visit begining of month -Wound surrounded by erythema, but no s/s cellulitis- not suspected as a source of infection -Continue management per wound clinic -Continue to monitor for s/s infection (4) Scleroderma Comment: -Supportive care (5) H/O: CVA (cerebrovascular accident) Comment: -Continue plavix, aspirin (6) Hypothyroidism Comment: -Continue home synthroid (7) GERD (gastroesophageal reflux disease) Comment: -Pantoprazole (8) DVT prophylaxis Comment: -Lovenox (9) Full code status Status and Disposition: Inpatient. Discharge when stable.
[2019-04-14] MEDS: Enoxaparin(*) 30 MG/0.3 ML SYR SUBCUT SCH (19:38)
[2019-04-14] MEDS ORDERED: Azithromycin 500 mg/250 ml NS 500 MG/250 ML BAG IVPB SCH (23:00)
[2019-04-14] MEDS ORDERED: cefTRIAXone(*) 1 GM in NS 0.9% 50 ML* 50 ML IVPB SCH (23:00)
[2019-04-14] MEDS: Zolpidem TAB* 5 MG PO PRN (23:12)
[2019-04-15] MEDS: cefTRIAXone(*) 1 GM in NS 0.9% 50 ML* 50 ML IVPB SCH (03:45)
[2019-04-15] MEDS: Levothyroxine TAB* 50 MCG TAB PO SCH (05:35)
[2019-04-15 05:57] LABS: Hematocrit 28 % (35-47); Hemoglobin 9.2 g/dL (12.0-16.0); Mean Corpuscular HGB Conc 33 g/dL (31-36); Mean Corpuscular Hemoglobin 30 pg (27-31); Mean Corpuscular Volume 89 fL (80-97); Mean Platelet Volume 7.5 fL (7.4-10.4); Platelet Count 257 10^3/uL (150-450); Red Blood Count 3.13 10^6 /uL (3.70-4.87); Red Cell Distribution Width 15 % (10-15); White Blood Count 19.8 10^3/uL (3.5-10.8)
[2019-04-15 06:15] LABS: ABS Eosinophils 0.2 10^3/ul (0-0.6); ABS Lymphocytes 0.9 10^3/ul (1.0-4.8); ABS Monocytes 0.7 10^3/ul (0-0.8); ABS Neutrophils 17.8 10^3/ul (1.5-7.7); Lymphocyte % 4.4 %
[2019-04-15 06:22] LABS: Calcium 7.7 mg/dL (8.6-10.3); EGFR African American 184.5 (>60); EGFR Non-African American 152.5 (>60); Potassium 3.1 mmol/L (3.5-5.0)
[2019-04-15] MEDS: Clopidogrel TAB* 75 MG PO SCH (08:39)
[2019-04-15] MEDS: DOXYcycline CAP(*) 100 MG PO SCH ×2 (08:39→20:13)
[2019-04-15] MEDS: Potassium Chlor TAB* 20 MEQ TAB.ER PO SCH ×4 (08:39→14:26)
[2019-04-15] MEDS: Pantoprazole TAB * 40 MG TAB PO SCH (08:39)
[2019-04-15] MEDS: Aspirin EC TAB* 81 MG TAB.EC PO SCH (08:39)
[2019-04-15] MEDS: Mupirocin 2% OINT* TUBE TOPICAL SCH ×2 (08:40→20:13)
[2019-04-15] MEDS ORDERED: guaiFENesin ER TAB 600 MG PO SCH (12:00)
--- NOTE | 2019-04-15 18:36 | PN ---
Subjective Date of Service: 04/15/19 Interval History: Pt states she is feeling much better today- she has increased energy and appetite, decreased weakness. She does continue to have a productive cough, but denies fever, chills. She has slight SOB and continues to require O2. She continues to c/o chest congestion. Denies CP, headache, neck pain, abd pain, n/ v/d. Objective Active Medications: Aspirin (Aspirin Ec Tab*) 81 mg PO DAILY [facility] Last Admin: 04/15/19 08:39 Dose: 81 mg Clopidogrel Bisulfate (Plavix Tab*) 75 mg PO DAILY [facility] Last Admin: 04/15/19 08:39 Dose: 75 mg Doxycycline Hyclate (Vibramycin Cap(*)) 100 mg PO BID [facility] Last Admin: 04/15/19 08:39 Dose: 100 mg Enoxaparin Sodium (Lovenox(*)) 30 mg SUBCUT Q24H [facility] Last Admin: 04/14/19 19:38 Dose: 30 mg Guaifenesin (Mucinex*) 600 mg PO BID [facility] Last Admin: 04/15/19 11:31 Dose: Not Given Ceftriaxone Sodium 1 gm/ (Sodium Chloride) 50 mls @ 200 mls/hr IVPB Q24H [facility] Last Admin: 04/15/19 03:45 Dose: 200 mls/hr Levothyroxine Sodium (Synthroid Tab*) 50 mcg PO DAILY@0600 [facility] Last Admin: 04/15/19 05:35 Dose: 50 mcg Mupirocin (Bactroban 2 % Oint*) 1 applic TOPICAL BID [facility] Last Admin: 04/15/19 08:40 Dose: Not Given Pantoprazole Sodium (Protonix Tab*) 40 mg PO DAILY [facility] Last Admin: 04/15/19 08:39 Dose: 40 mg Zolpidem Tartrate (Ambien Tab*) 5 mg PO BEDTIME PRN PRN Reason: SLEEP Last Admin: 04/14/19 23:12 Dose: 5 mg Vital Signs - 8 hr 04/15/19 04/15/19 04/15/19 12:11 12:54 15:49 Temperature 98.0 F 98.4 F Pulse Rate 64 73 Respiratory 20 20 20 Rate Blood Pressure 136/61 134/66 (mmHg) O2 Sat by Pulse 95 95 94 Oximetry Oxygen Devices in Use Now: Nasal Cannula Appearance: Pt is sitting up in bed with HOB elevated. She is pleasant, cooperative. In no acute distress or respiratory distress. Eyes: No Scleral Icterus, PERRLA Ears/Nose/Mouth/Throat: NL Teeth, Lips, Gums, Clear Oropharnyx, Mucous Membranes Moist Neck: NL Appearance and Movements; NL JVP, Trachea Midline Respiratory: Symmetrical Chest Expansion and Respiratory Effort, - - LLL crackles. Cardiovascular: NL Sounds; No Murmurs; No JVD, RRR, No Edema Abdominal: NL Sounds; No Tenderness; No Distention, No Hepatosplenomegaly Extremities: - - Wounds to R knee, b/l medial malleoli with dressing in place, small amount of serosang fluid. Area of mild erythema surrounding medial melloli wound, no warmth around site of wound, no purulent drainage. Result Diagrams: 04/15/19 05:46 04/15/19 05:46 Microbiology and Other Data: Microbiology 04/15/19 09:30 Gram Stain - Final Sputum Expectorated 04/13/19 20:13 Aerobic Blood Culture - Preliminary Blood Venous No Growth Day 1 Anaerobic Blood Culture - Preliminary No Growth Day 1 04/13/19 20:13 Aerobic Blood Culture - Preliminary Blood Venous No Growth Day 1 Anaerobic Blood Culture - Preliminary No Growth Day 1 04/13/19 23:31 Legionella Urinary Antigen - Final Urine Negative Legionella Antigen Streptococcus pneumoniae Ag Screen - Final Positive S. Pneumo Antigen Assess/Plan/Problems-Billing Assessment: 73 yof PMHx scleroderma, raynaud's, calcinosis, chronic wounds of distal medial malleoli and R knee, hypothyroid, GERD, pulmonary hypertension, and CVA in 2016 who presents to ER in septic shock due to R lobe pneumonia. - Patient Problems (1) Pneumonia Comment: -Continued cough, leukocytosis, O2 requirements; afebrile -Urine for legionella negative -S. pneumo positive; sensitivity pending -BC NGTD -Sputum culture ordered, pending -Mucinex ordered -Wean O2 as tolerated -Continue Ceftriaxone, Doxy (2) Septic shock Comment: -Leukocytosis, hypotension, febrile, without lactic acidosis; did not require pressors -Fluid bolus improved BP; will continue maintainence fluids for now -Septic shock resolved -BC NGTD -Continue to monitor (3) Chronic wound of extremity Comment: -Wound on R knee and b/l LE; last wound clinic visit begining of month -Wound surrounded by erythema, but no s/s cellulitis- not suspected as a source of infection -Continue management per home wound clinic instructions -Continue to monitor for s/s infection (4) Scleroderma Comment: -Supportive care (5) H/O: CVA (cerebrovascular accident) Comment: -Continue plavix, aspirin (6) Hypothyroidism Comment: -Continue home synthroid (7) GERD (gastroesophageal reflux disease) Comment: -Pantoprazole (8) DVT prophylaxis Comment: -Lovenox (9) Full code status Status and Disposition: Inpatient. Discharge when stable.
[2019-04-15] MEDS: Enoxaparin(*) 30 MG/0.3 ML SYR SUBCUT SCH (20:13)
[2019-04-15] MEDS: guaiFENesin LIQ* 100 MG/5 ML UDC PO PRN (20:18)
[2019-04-15] MEDS: Zolpidem TAB* 5 MG PO PRN (22:20)
[2019-04-16] MEDS: Levothyroxine TAB* 50 MCG TAB PO SCH (05:25)
[2019-04-16] MEDS: cefTRIAXone(*) 1 GM in NS 0.9% 50 ML* 50 ML IVPB SCH (05:30)
[2019-04-16] MEDS: guaiFENesin LIQ* 100 MG/5 ML UDC PO PRN ×2 (05:30→21:11)
[2019-04-16 06:47] LABS: ABS Basophils 0.1 10^3/ul (0-0.2); ABS Eosinophils 0.2 10^3/ul (0-0.6); ABS Monocytes 0.6 10^3/ul (0-0.8); ABS Neutrophils 11.7 10^3/ul (1.5-7.7); Eosinophil % 1.3 %; Hematocrit 31 % (35-47); Hemoglobin 10.2 g/dL (12.0-16.0); Lymphocyte % 7.6 %; Mean Corpuscular HGB Conc 33 g/dL (31-36); Mean Corpuscular Hemoglobin 30 pg (27-31); Mean Corpuscular Volume 89 fL (80-97); Mean Platelet Volume 8.1 fL (7.4-10.4); Platelet Count 277 10^3/uL (150-450); Red Blood Count 3.43 10^6 /uL (3.70-4.87); Red Cell Distribution Width 15 % (10-15); White Blood Count 13.6 10^3/uL (3.5-10.8)
[2019-04-16 07:10] LABS: Calcium 8.3 mg/dL (8.6-10.3); EGFR African American 189.8 (>60); EGFR Non-African American 156.9 (>60)
[2019-04-16] MEDS: Clopidogrel TAB* 75 MG PO SCH (08:48)
[2019-04-16] MEDS: DOXYcycline CAP(*) 100 MG PO SCH ×2 (08:48→21:11)
[2019-04-16] MEDS: Aspirin EC TAB* 81 MG TAB.EC PO SCH (08:48)
[2019-04-16] MEDS: Pantoprazole TAB * 40 MG TAB PO SCH (08:48)
[2019-04-16] MEDS: Mupirocin 2% OINT* TUBE TOPICAL SCH ×2 (08:49→21:11)
--- NOTE | 2019-04-16 09:41 | PN ---
Subjective Date of Service: 04/16/19 Interval History: Pt is feeling a little better today. She states she continues to have productive cough, and feels that mucinex is helpful. She has been attempting to wean off O2, but continues to require O2 with ambulation. She notes that she was tired yesterday while walking without O2, but improved when O2 reapplied. Pt notes that she used to use O2 at night, but this was discontinued years ago. Denies CP, fever, abd pain, n/v/d/c. Is eating and drinking well, having regular bowel movements. Denies CP, headache, neck pain, fever/chills, abd pain. Pt seen later in afternoon and has increased SOB at rest. She is requiring more O2 at rest, but continues to have clear lung sounds. Objective Active Medications: Aspirin (Aspirin Ec Tab*) 81 mg PO DAILY [facility] Clopidogrel Bisulfate (Plavix Tab*) 75 mg PO DAILY [facility] Doxycycline Hyclate (Vibramycin Cap(*)) 100 mg PO BID [facility] Enoxaparin Sodium (Lovenox(*)) 30 mg SUBCUT Q24H [facility] Guaifenesin (Robitussin*) 5 ml PO Q4H PRN Ceftriaxone Sodium 1 gm/ (Sodium Chloride) 50 mls @ 200 mls/hr IVPB Q24H [facility] Levothyroxine Sodium (Synthroid Tab*) 50 mcg PO DAILY@0600 [facility] Mupirocin (Bactroban 2 % Oint*) 1 applic TOPICAL BID [facility] Pantoprazole Sodium (Protonix Tab*) 40 mg PO DAILY [facility] Zolpidem Tartrate (Ambien Tab*) 5 mg PO BEDTIME PRN Vital Signs: Temp Pulse Resp BP Pulse Ox 97.3 F 66 24 156/75 90 04/16/19 03:44 04/16/19 03:44 04/16/19 03:44 04/16/19 03:44 04/16/19 03:30 Oxygen Devices in Use Now: Nasal Cannula Appearance: Pt is sitting up in bed eating breakfast. She is not wearing O2 at this time. No respiratory distress. She appears to be in no acute distress. She coughs intermittently. Eyes: No Scleral Icterus, PERRLA Ears/Nose/Mouth/Throat: NL Teeth, Lips, Gums, Clear Oropharnyx, Mucous Membranes Moist, - - Thin, tight skin over face, mouth Neck: NL Appearance and Movements; NL JVP, Trachea Midline Respiratory: Symmetrical Chest Expansion and Respiratory Effort, Clear to Auscultation, - - Slight intermittent rales at base of R LL; CTA elsewhere Cardiovascular: NL Sounds; No Murmurs; No JVD, RRR, No Edema Abdominal: NL Sounds; No Tenderness; No Distention, No Hepatosplenomegaly Extremities: No Edema, - - UE with clubbing, cyanosis, contractures. LE with clubbing. Multiple wounds to R knee, b/l medial malleoli covered with dsg with small amount of serosang fluid. Medial malleoli wounds with mild amount of erythema surrounding wound, without change in temp compared to other areas of skin. Result Diagrams: 04/16/19 06:07 04/16/19 06:07 Microbiology and Other Data: Microbiology 04/15/19 09:30 Gram Stain - Final Sputum Expectorated 04/13/19 20:13 Aerobic Blood Culture - Preliminary Blood Venous No Growth Day 1 Anaerobic Blood Culture - Preliminary No Growth Day 1 04/13/19 20:13 Aerobic Blood Culture - Preliminary Blood Venous No Growth Day 1 Anaerobic Blood Culture - Preliminary No Growth Day 1 04/13/19 23:31 Legionella Urinary Antigen - Final Urine Negative Legionella Antigen Streptococcus pneumoniae Ag Screen - Final Positive S. Pneumo Antigen Assess/Plan/Problems-Billing Assessment: 73 yof PMHx scleroderma, raynaud's, calcinosis, chronic wounds of distal medial malleoli and R knee, hypothyroid, GERD, pulmonary hypertension, and CVA in 2016 who presents to ER in septic shock due to R lobe pneumonia. - Patient Problems (1) Pneumonia Comment: -Continued cough, O2 requirements; leukocytosis trending down; afebrile -Urine for legionella negative -S. pneumo positive -BC NGTD -Sputum culture ordered, pending -Mucinex ordered -Unable to wean off O2 with ambulation; may need home O2 -Continue Ceftriaxone, Doxy (2) Acute and chronic respiratory failure with hypoxia Comment: -Patient requiring O2 with ambulation and at rest -CXR findings suggestive of chronic interstitial lung disease, likely result of systemic scleroderma -Ambulatory O2 sats obtained; pt satting mid-80's at 15L -Pna likely complicating respiratory status, but concern for ? PE -D-dimer 1050 -CTA chest ordered, pending -Prednisone 40 PO daily ordered -Pt may need home O2 (3) Septic shock Comment: -Leukocytosis, hypotension, febrile, without lactic acidosis; did not require pressors -Fluid bolus improved BP; maintainence fluids discontinued -Septic shock resolved -BC NGTD -Continue to monitor (4) Chronic wound of extremity Comment: -Wound on R knee and b/l LE; last wound clinic visit begining of month -Wound surrounded by erythema, but no s/s cellulitis- not suspected as a source of infection -Continue management per home wound clinic instructions -Continue to monitor for s/s infection (5) Imaging abnormalities Comment: -SBO noted on CT CAP -Pt with appetite intact, denies n/v/c, regular BM and tolerating regular PO intake -Continue to monitor (6) Scleroderma Comment: -Supportive care (7) H/O: CVA (cerebrovascular accident) Comment: -Continue plavix, aspirin (8) Hypothyroidism Comment: -Continue home synthroid (9) GERD (gastroesophageal reflux disease) Comment: -Pantoprazole (10) DVT prophylaxis Comment: -Lovenox (11) Full code status Status and Disposition: Inpatient. Discharge when stable.
[2019-04-16] MEDS: predniSONE TAB* 20 MG PO SCH (16:25)
[2019-04-16] MEDS ORDERED: Iohexol 350* (CONTRAST) 500 ML MDV IV ONE (16:28)
[2019-04-16] MEDS: Enoxaparin(*) 30 MG/0.3 ML SYR SUBCUT SCH (21:11)
[2019-04-16] MEDS: Zolpidem TAB* 5 MG PO PRN (22:11)
[2019-04-17] MEDS: Levothyroxine TAB* 50 MCG TAB PO SCH (05:59)
[2019-04-17] MEDS: cefTRIAXone(*) 1 GM in NS 0.9% 50 ML* 50 ML IVPB SCH (05:59)
[2019-04-17 07:43] LABS: ABS Lymphocytes 0.9 10^3/ul (1.0-4.8); ABS Monocytes 0.4 10^3/ul (0-0.8); Hematocrit 31 % (35-47); Hemoglobin 10.3 g/dL (12.0-16.0); Lymphocyte % 11.3 %; Mean Corpuscular HGB Conc 34 g/dL (31-36); Mean Corpuscular Hemoglobin 30 pg (27-31); Mean Corpuscular Volume 88 fL (80-97); Mean Platelet Volume 7.7 fL (7.4-10.4); Nucleated Red Blood Cells % 0.1; Platelet Count 309 10^3/uL (150-450); Red Blood Count 3.47 10^6 /uL (3.70-4.87); Red Cell Distribution Width 15 % (10-15); White Blood Count 8.3 10^3/uL (3.5-10.8)
[2019-04-17] MEDS: Pantoprazole TAB * 40 MG TAB PO SCH (09:22)
[2019-04-17] MEDS: Clopidogrel TAB* 75 MG PO SCH (09:22)
[2019-04-17] MEDS: predniSONE TAB* 20 MG PO SCH (09:22)
[2019-04-17] MEDS: Aspirin EC TAB* 81 MG TAB.EC PO SCH (09:22)
[2019-04-17] MEDS: DOXYcycline CAP(*) 100 MG PO SCH ×2 (09:22→21:06)
[2019-04-17] MEDS: Mupirocin 2% OINT* TUBE TOPICAL SCH ×2 (09:23→21:05)
--- NOTE | 2019-04-17 15:18 | PN ---
Subjective Date of Service: 04/17/19 Interval History: Patient seen and examined. Remains on O2 at 4L, no c/o acute SOB, no fevers or chills, no chest pains. No further complaints. Objective Active Medications: Aspirin (Aspirin Ec Tab*) 81 mg PO DAILY [facility] Last Admin: 04/17/19 09:22 Dose: 81 mg Clopidogrel Bisulfate (Plavix Tab*) 75 mg PO DAILY [facility] Last Admin: 04/17/19 09:22 Dose: 75 mg Doxycycline Hyclate (Vibramycin Cap(*)) 100 mg PO BID [facility] Last Admin: 04/17/19 09:22 Dose: 100 mg Enoxaparin Sodium (Lovenox(*)) 30 mg SUBCUT Q24H [facility] Last Admin: 04/16/19 21:11 Dose: 30 mg Guaifenesin (Robitussin*) 5 ml PO Q4H PRN PRN Reason: Cough/Congestion Last Admin: 04/16/19 21:11 Dose: 5 ml Ceftriaxone Sodium 1 gm/ (Sodium Chloride) 50 mls @ 200 mls/hr IVPB Q24H [facility] Last Admin: 04/17/19 05:59 Dose: 200 mls/hr Levothyroxine Sodium (Synthroid Tab*) 50 mcg PO DAILY@0600 [facility] Last Admin: 04/17/19 05:59 Dose: 50 mcg Mupirocin (Bactroban 2 % Oint*) 1 applic TOPICAL BID [facility] Last Admin: 04/17/19 09:23 Dose: Not Given Pantoprazole Sodium (Protonix Tab*) 40 mg PO DAILY [facility] Last Admin: 04/17/19 09:22 Dose: 40 mg Prednisone (Deltasone Tab*) 40 mg PO DAILY [facility] Last Admin: 04/17/19 09:22 Dose: 40 mg Zolpidem Tartrate (Ambien Tab*) 5 mg PO BEDTIME PRN PRN Reason: SLEEP Last Admin: 04/16/19 22:11 Dose: 5 mg Vital Signs - 8 hr 04/17/19 04/17/19 08:00 08:04 Temperature 97.6 F Pulse Rate 52 Respiratory 18 18 Rate Blood Pressure 123/66 (mmHg) O2 Sat by Pulse 100 100 Oximetry Oxygen Devices in Use Now: Nasal Cannula Appearance: alert,NAD Eyes: No Scleral Icterus, PERRLA Ears/Nose/Mouth/Throat: Mucous Membranes Moist Neck: NL Appearance and Movements; NL JVP, Trachea Midline Respiratory: Symmetrical Chest Expansion and Respiratory Effort, - - diminished based Cardiovascular: NL Sounds; No Murmurs; No JVD, RRR, No Edema Abdominal: NL Sounds; No Tenderness; No Distention Extremities: No Edema, - - contracted fingers Neurological: Alert and Oriented x 3 Nutrition: Taking PO's Result Diagrams: 04/17/19 07:23 04/16/19 06:07 Microbiology and Other Data: Microbiology 04/15/19 09:30 Gram Stain - Final Sputum Expectorated 04/13/19 20:13 Aerobic Blood Culture - Preliminary Blood Venous No Growth Day 1 Anaerobic Blood Culture - Preliminary No Growth Day 1 04/13/19 20:13 Aerobic Blood Culture - Preliminary Blood Venous No Growth Day 1 Anaerobic Blood Culture - Preliminary No Growth Day 1 04/13/19 23:31 Legionella Urinary Antigen - Final Urine Negative Legionella Antigen Streptococcus pneumoniae Ag Screen - Final Positive S. Pneumo Antigen Assess/Plan/Problems-Billing Assessment: 73 yof PMHx scleroderma, raynaud's, calcinosis, chronic wounds of distal medial malleoli and R knee, hypothyroid, GERD, pulmonary hypertension, and CVA in 2016 who presents to ER in septic shock due to R lobe pneumonia. - Patient Problems (1) Pneumonia Code(s): J18.9 - PNEUMONIA, UNSPECIFIED ORGANISM SNOMED Code(s): 168590942 Comment: - Cough improved, leukocytosis trending down, afebrile - Urine for legionella negative - S. pneumo positive - BC NGTD - Continue Ceftriaxone, Doxycycline - Wean O2 as tolerated (2) Acute respiratory failure with hypoxia Code(s): J96.01 - ACUTE RESPIRATORY FAILURE WITH HYPOXIA SNOMED Code(s): 37407326 Comment: - CTA chest negative for PE - Bilateral pleural effusions noted, likely transudative 2/2 PNA - Continue supplemental O2 - Do not feel diuretics would help at this time, patient does feel improvement with prednisone - Continue flutter valve and O2 (3) Chronic wound of extremity Code(s): RSV8718 - SNOMED Code(s): 833245280 Comment: - Wound on R knee and b/l LE; last wound clinic visit begining of month - Wound surrounded by erythema, but no s/s cellulitis- not suspected as a source of infection - Continue management per home wound clinic instructions - Continue to monitor for s/s infection (4) Scleroderma Code(s): M34.9 - SYSTEMIC SCLEROSIS, UNSPECIFIED SNOMED Code(s): 75564643 Comment: - Supportive care (5) DVT prophylaxis Code(s): KND2116 - SNOMED Code(s): 750698738 Comment: - Lovenox (6) Full code status Code(s): Z78.9 - OTHER SPECIFIED HEALTH STATUS SNOMED Code(s): 768944760 Status and Disposition: Inpatient. Discharge when stable.
[2019-04-17] MEDS: Enoxaparin(*) 30 MG/0.3 ML SYR SUBCUT SCH (21:06)
[2019-04-17] MEDS: guaiFENesin LIQ* 100 MG/5 ML UDC PO PRN (22:20)
[2019-04-17] MEDS: Zolpidem TAB* 5 MG PO PRN (22:20)
[2019-04-18] MEDS: cefTRIAXone(*) 1 GM in NS 0.9% 50 ML* 50 ML IVPB SCH (04:16)
[2019-04-18] MEDS: Levothyroxine TAB* 50 MCG TAB PO SCH ×2 (04:54→05:26)
[2019-04-18] MEDS: predniSONE TAB* 20 MG PO SCH (08:54)
[2019-04-18] MEDS: Mupirocin 2% OINT* TUBE TOPICAL SCH ×2 (08:55→20:50)
[2019-04-18] MEDS: Aspirin EC TAB* 81 MG TAB.EC PO SCH (08:55)
[2019-04-18] MEDS: DOXYcycline CAP(*) 100 MG PO SCH ×2 (08:55→20:52)
[2019-04-18] MEDS: Clopidogrel TAB* 75 MG PO SCH (08:55)
[2019-04-18] MEDS: Pantoprazole TAB * 40 MG TAB PO SCH (08:55)
--- NOTE | 2019-04-18 18:47 | PN ---
Subjective Date of Service: 04/18/19 Interval History: Patient seen and examined. RA sats ordered at rest and with ambulation. Patient desated to 80's and became tachypneic. Remains on 4-6L NC. Has unproductive cough, no fever, no chest pain, no further complaints. Objective Active Medications: Aspirin (Aspirin Ec Tab*) 81 mg PO DAILY [facility] Last Admin: 04/18/19 08:55 Dose: 81 mg Clopidogrel Bisulfate (Plavix Tab*) 75 mg PO DAILY [facility] Last Admin: 04/18/19 08:55 Dose: 75 mg Doxycycline Hyclate (Vibramycin Cap(*)) 100 mg PO BID [facility] Last Admin: 04/18/19 08:55 Dose: 100 mg Guaifenesin (Robitussin*) 5 ml PO Q4H PRN PRN Reason: Cough/Congestion Last Admin: 04/17/19 22:20 Dose: 5 ml Ceftriaxone Sodium 1 gm/ (Sodium Chloride) 50 mls @ 200 mls/hr IVPB Q24H [facility] Last Admin: 04/18/19 04:16 Dose: 200 mls/hr Levothyroxine Sodium (Synthroid Tab*) 50 mcg PO DAILY@0600 [facility] Last Admin: 04/18/19 05:26 Dose: 50 mcg Mupirocin (Bactroban 2 % Oint*) 1 applic TOPICAL BID [facility] Last Admin: 04/18/19 08:55 Dose: Not Given Pantoprazole Sodium (Protonix Tab*) 40 mg PO DAILY [facility] Last Admin: 04/18/19 08:55 Dose: 40 mg Prednisone (Deltasone Tab*) 40 mg PO DAILY [facility] Last Admin: 04/18/19 08:54 Dose: 40 mg Zolpidem Tartrate (Ambien Tab*) 5 mg PO BEDTIME PRN PRN Reason: SLEEP Last Admin: 04/17/19 22:20 Dose: 5 mg Vital Signs - 8 hr 04/18/19 04/18/19 11:41 15:30 Temperature 97.3 F 98.3 F Pulse Rate 62 88 Respiratory 20 20 Rate Blood Pressure 133/67 111/56 (mmHg) O2 Sat by Pulse 93 97 Oximetry Oxygen Devices in Use Now: Nasal Cannula Appearance: alert, NAD Eyes: No Scleral Icterus, PERRLA Ears/Nose/Mouth/Throat: Mucous Membranes Moist Neck: NL Appearance and Movements; NL JVP, Trachea Midline Respiratory: - - diminished R>L, no wheeze, adequate air entry Cardiovascular: NL Sounds; No Murmurs; No JVD, RRR, No Edema Extremities: No Edema, - - wounds to right knee and ankles, dressed, contracted fingers bilat Neurological: Alert and Oriented x 3 Nutrition: Taking PO's Result Diagrams: 04/17/19 07:23 04/16/19 06:07 Microbiology and Other Data: Microbiology 04/15/19 09:30 Gram Stain - Final Sputum Expectorated 04/13/19 20:13 Aerobic Blood Culture - Preliminary Blood Venous No Growth Day 1 Anaerobic Blood Culture - Preliminary No Growth Day 1 04/13/19 20:13 Aerobic Blood Culture - Preliminary Blood Venous No Growth Day 1 Anaerobic Blood Culture - Preliminary No Growth Day 1 04/13/19 23:31 Legionella Urinary Antigen - Final Urine Negative Legionella Antigen Streptococcus pneumoniae Ag Screen - Final Positive S. Pneumo Antigen Assess/Plan/Problems-Billing Assessment: 73 yof PMHx scleroderma, raynaud's, calcinosis, chronic wounds of distal medial malleoli and R knee, hypothyroid, GERD, pulmonary hypertension, and CVA in 2016 who presents to ER in septic shock due to R lobe pneumonia. - Patient Problems (1) Pneumonia Code(s): J18.9 - PNEUMONIA, UNSPECIFIED ORGANISM SNOMED Code(s): 200126716 Comment: - Cough improved, leukocytosis trending down, afebrile - Urine for legionella negative - S. pneumo positive - BC NGTD - Continue Ceftriaxone, Doxycycline - Wean O2 as tolerated (2) Acute respiratory failure with hypoxia Code(s): J96.01 - ACUTE RESPIRATORY FAILURE WITH HYPOXIA SNOMED Code(s): 76264660 Comment: - CTA chest negative for PE - Bilateral pleural effusions noted, likely transudative 2/2 PNA - Cannot wean O2 today and remains on higher O2 requirement, consult to Dr. Galdamez for thoracentesis to alleviate pleural effusion on the right in hopes of reducing hypoxia - Hold lovenox tonight, plan for thoracentesis tomorrow with Dr. Galdamez, ok to continue plavix (3) Chronic wound of extremity Code(s): NTQ0816 - SNOMED Code(s): 475863651 Comment: - Wound on R knee and b/l LE; last wound clinic visit begining of month - Wound surrounded by erythema, but no s/s cellulitis - Continue local wound care management per home wound clinic instructions - Continue to monitor for s/s infection (4) Scleroderma Code(s): M34.9 - SYSTEMIC SCLEROSIS, UNSPECIFIED SNOMED Code(s): 32403585 Comment: - Supportive care (5) DVT prophylaxis Code(s): [id number] - SNOMED Code(s): 793483628 Comment: - Lovenox (6) Full code status Code(s): Z78.9 - OTHER SPECIFIED HEALTH STATUS SNOMED Code(s): 742882872 Status and Disposition: Inpatient. Discharge to home when stable.
[2019-04-18] MEDS: guaiFENesin LIQ* 100 MG/5 ML UDC PO PRN (20:52)
[2019-04-18] MEDS: Zolpidem TAB* 5 MG PO PRN (21:55)
[2019-04-19] MEDS: cefTRIAXone(*) 1 GM in NS 0.9% 50 ML* 50 ML IVPB SCH (04:44)
[2019-04-19] MEDS: Levothyroxine TAB* 50 MCG TAB PO SCH (06:16)
[2019-04-19] MEDS: predniSONE TAB* 20 MG PO SCH (08:36)
[2019-04-19] MEDS: DOXYcycline CAP(*) 100 MG PO SCH ×2 (08:36→20:44)
[2019-04-19] MEDS: Clopidogrel TAB* 75 MG PO SCH ×2 (08:37→14:23)
[2019-04-19] MEDS: Aspirin EC TAB* 81 MG TAB.EC PO SCH ×2 (08:37→14:23)
[2019-04-19] MEDS: Pantoprazole TAB * 40 MG TAB PO SCH (08:37)
[2019-04-19] MEDS: Mupirocin 2% OINT* TUBE TOPICAL SCH ×2 (08:41→20:41)
[2019-04-19 14:29] LABS: Body Fluid Source Pleural Fluid
[2019-04-19 15:45] LABS: Body Fluid Mono 20 %; Body Fluid Other Cells 1
--- NOTE | 2019-04-19 16:55 | PN ---
Subjective Date of Service: 04/19/19 Interval History: Patient seen and examined. OOB to chair, feeling well, remains oxygen dependent with desats off O2. Denies fevers or chills, mild cough, no further complaints. Objective Active Medications: Aspirin (Aspirin Ec Tab*) 81 mg PO DAILY [facility] Last Admin: 04/19/19 14:23 Dose: 81 mg Clopidogrel Bisulfate (Plavix Tab*) 75 mg PO DAILY [facility] Last Admin: 04/19/19 14:23 Dose: 75 mg Doxycycline Hyclate (Vibramycin Cap(*)) 100 mg PO BID [facility] Last Admin: 04/19/19 08:36 Dose: 100 mg Guaifenesin (Robitussin*) 5 ml PO Q4H PRN PRN Reason: Cough/Congestion Last Admin: 04/18/19 20:52 Dose: 5 ml Ceftriaxone Sodium 1 gm/ (Sodium Chloride) 50 mls @ 200 mls/hr IVPB Q24H [facility] Last Admin: 04/19/19 04:44 Dose: 200 mls/hr Levothyroxine Sodium (Synthroid Tab*) 50 mcg PO DAILY@0600 [facility] Last Admin: 04/19/19 06:16 Dose: 50 mcg Mupirocin (Bactroban 2 % Oint*) 1 applic TOPICAL BID [facility] Last Admin: 04/19/19 08:41 Dose: Not Given Pantoprazole Sodium (Protonix Tab*) 40 mg PO DAILY [facility] Last Admin: 04/19/19 08:37 Dose: 40 mg Prednisone (Deltasone Tab*) 40 mg PO DAILY [facility] Last Admin: 04/19/19 08:36 Dose: 40 mg Zolpidem Tartrate (Ambien Tab*) 5 mg PO BEDTIME PRN PRN Reason: SLEEP Last Admin: 04/18/19 21:55 Dose: 5 mg Vital Signs - 8 hr 04/19/19 04/19/19 04/19/19 10:28 11:35 13:40 Temperature 98 F 97.8 F 97.3 F Pulse Rate 45 58 57 Respiratory 20 20 18 Rate Blood Pressure 144/61 145/71 157/70 (mmHg) O2 Sat by Pulse 97 100 99 Oximetry Oxygen Devices in Use Now: Nasal Cannula Appearance: alert, NAD Eyes: No Scleral Icterus, PERRLA Ears/Nose/Mouth/Throat: Mucous Membranes Moist Neck: NL Appearance and Movements; NL JVP, Trachea Midline Respiratory: Symmetrical Chest Expansion and Respiratory Effort, - - diminished 1/2 up the bases bilat Abdominal: NL Sounds; No Tenderness; No Distention Extremities: No Edema, - - contracted fingers bilat, wound right knee, bilateral ankles Neurological: Alert and Oriented x 3 Nutrition: Taking PO's Result Diagrams: 04/17/19 07:23 04/16/19 06:07 Microbiology and Other Data: Microbiology 04/15/19 09:30 Gram Stain - Final Sputum Expectorated 04/13/19 20:13 Aerobic Blood Culture - Preliminary Blood Venous No Growth Day 1 Anaerobic Blood Culture - Preliminary No Growth Day 1 04/13/19 20:13 Aerobic Blood Culture - Preliminary Blood Venous No Growth Day 1 Anaerobic Blood Culture - Preliminary No Growth Day 1 04/13/19 23:31 Legionella Urinary Antigen - Final Urine Negative Legionella Antigen Streptococcus pneumoniae Ag Screen - Final Positive S. Pneumo Antigen Diagnostic Imaging: Patient Name: REHANA WELDON Medical Record#: [id number] Ordering Physician: Apurva RAPP Acct.#: [id number] : 1945 Age: 73 Sex: F Location: [address] [place] [address] - MEDICAL Exam Date: 04/16/19 1605 ADM Status: ADM IN Order Information: CTA CHEST Accession Number: [id number] CPT: 21947 INDICATION: Shortness of breath. Assess for PE. COMPARISON: April 13, 2019 CT. January 03, [address] TECHNIQUE: Multidetector CT images were obtained from the lung apices to the upper abdomen with 53 mL Omnipaque 350 IV contrast. Pulmonary angiogram protocol. Multiplanar reformation including with maximum intensity projection. REPORT: LUNG: Large RIGHT and moderate LEFT pleural effusions with proportional atelectasis are grossly new compared with the prior exam. Additionally there is airspace consolidation involving the RIGHT lower lobe which may represent pneumonia similar to the prior exam. MEDIASTINUM / AXILLA: LEFT supraclavicular lymphadenopathy measuring up to 1.4 cm short axis. Cardiomegaly. Negative for pericardial effusion. Aortic valve endograft in place. Negative for aneurysm of the thoracic aorta. 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 Venous catheter from the LEFT chest port predisposes to thrombosis. Degree of bilateral lower lobe volume loss due to pleural effusions limits assessment for pulmonary embolism. No visualized filling defects in the pulmonary arteries to confirm presence of pulmonary embolism. No gross peripheral pulmonary arterial enlargement to suggest pulmonary embolism. Enlarged central pulmonary arteries with peripheral attenuation. Dilated esophagus is likely secondary to patient's history of scleroderma. UPPER ABDOMEN: Passive congestion of contrast from the RIGHT atrium to the IVC and hepatic veins. BONES: Negative for suspicious osseous lesions. SOFT TISSUE: Extensive skeletal muscular soft tissue calcifications about the shoulders and posterior aspect of the thorax is likely secondary to patient's history of scleroderma. IMPRESSION: #. Limited exam without compelling evidence for pulmonary embolism. Stigmata of pulmonary arterial hypertension likely attributable to patient's history of scleroderma. #. 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 Venous catheter from the LEFT chest port predisposes to thrombosis. #. Large RIGHT and moderate LEFT pleural effusions with proportional atelectasis are grossly new compared with the prior exam. Given evidence for passive congestion of the liver consider pulmonary edema. #. Additionally there is airspace consolidation involving the RIGHT lower lobe which may represent pneumonia similar to the prior exam. #. Gastrointestinal and musculoskeletal manifestations of scleroderma as noted. This report is only to be considered final once signed by the Provider(s) as displayed in the "<Electronically Signed by >" field (s). Absence of a signature indicates the report is in a draft status and still needs to be finalized. In the event this document was created by someone other than the signing Provider, the individual initiating the document will be listed in the "Entered by:" or "Dictated by:" goldberg. Assess/Plan/Problems-Billing Assessment: 73 yof PMHx scleroderma, raynaud's, calcinosis, chronic wounds of distal medial malleoli and R knee, hypothyroid, GERD, pulmonary hypertension, and CVA in 2016 who presents to ER in septic shock due to R lobe pneumonia. - Patient Problems (1) Pneumonia Code(s): J18.9 - PNEUMONIA, UNSPECIFIED ORGANISM SNOMED Code(s): 124449816 Comment: - S. pneumo positive - BC NGTD - Continue Ceftriaxone, Doxycycline - Difficutly weaning O2 2/2 effusions (2) Acute respiratory failure with hypoxia Code(s): J96.01 - ACUTE RESPIRATORY FAILURE WITH HYPOXIA SNOMED Code(s): 16815394 Comment: - CTA chest negative for PE - Bilateral pleural effusions noted, likely transudative 2/2 PNA - Cannot wean O2 today and remains on higher O2 requirement - Plan for thoracentesis today with amira Rendon to continue plavix (3) Chronic wound of extremity Code(s): LFW3422 - SNOMED Code(s): 440212581 Comment: - Wound on R knee and b/l LE; last wound clinic visit begining of month - Wound surrounded by erythema, but no s/s cellulitis - Continue local wound care management per home wound clinic instructions - Continue to monitor for s/s infection (4) Scleroderma Code(s): M34.9 - SYSTEMIC SCLEROSIS, UNSPECIFIED SNOMED Code(s): 28252008 Comment: - Supportive care (5) DVT prophylaxis Code(s): WVZ3072 - SNOMED Code(s): 137576643 Comment: - Lovenox (6) Full code status Code(s): Z78.9 - OTHER SPECIFIED HEALTH STATUS SNOMED Code(s): 634834671 Status and Disposition: Inpatient. Discharge to home when stable.
--- NOTE | 2019-04-19 17:00 | CONSULT ---
Subjective Date of Service: 04/19/19 Interval History: Ms. Denise is a 73 yo female with PMH significant for scleroderma, Raynaud's, calcinosis, hypothyroidism, GERD, pulmonary HTN, CVA, and chronic wounds to the extremities; who presented to the hospital with complaints of weakness. She was found to have septic shock secondary to right sided PNA. Ms. Denise presented to the hospital with multiple chronic open areas on her extremities. She follows with the wound clinic once a week and her assists with dressing changes at home. She has been treating chronic wounds for 4 years. They apply mupirocin and metronidazole to the Optifoam AG+ and change the dressings as needed for soiling. Patient seen and examined at bedside. Family History: Unchanged from Admission Social History: Unchanged from Admission Past Medical History: Unchanged from Admission Review of Systems - Measurements Intake and Output: Intake and Output Last 24 Hours 04/17/19 04/18/19 04/19/19 04/20/19 06:59 06:59 06:59 06:59 Intake Total 2195 850 5276 600 Output Total 200 400 Balance 1190 680 890 600 Weight 102 lb Intake: IV Fluids 10 15 Normal saline 10 15 IVPB 55 Ceftriaxone 55 Oral 6460 074 8996 600 Output: Urine 200 400 Other: Estimated Void Medium Medium Small Medium Date of Last Bowel [id number] Movement # Bowel Movements 0 0 0 0 Estimated Stool Amount Large Medium # Voids 1 1 1 2 - Review of Systems Constitutional Symptoms: Negative: Fever, Other - Chills Dermatology: Positive: Other - Chronic wounds to extremities Objective Active Medications: Aspirin (Aspirin Ec Tab*) 81 mg PO DAILY [facility] Clopidogrel Bisulfate (Plavix Tab*) 75 mg PO DAILY [facility] Doxycycline Hyclate (Vibramycin Cap(*)) 100 mg PO BID [facility] Guaifenesin (Robitussin*) 5 ml PO Q4H PRN Reason: Cough/Congestion Ceftriaxone Sodium 1 gm/ (Sodium Chloride) 50 mls @ 200 mls/hr IVPB Q24H [facility] Levothyroxine Sodium (Synthroid Tab*) 50 mcg PO DAILY@0600 [facility] Mupirocin (Bactroban 2 % Oint*) 1 applic TOPICAL BID [facility] Pantoprazole Sodium (Protonix Tab*) 40 mg PO DAILY [facility] Prednisone (Deltasone Tab*) 40 mg PO DAILY [facility] Zolpidem Tartrate (Ambien Tab*) 5 mg PO BEDTIME PRN Reason: SLEEP Vital Signs - 8 hr 04/19/19 04/19/19 04/19/19 10:28 11:35 13:40 Temperature 98 F 97.8 F 97.3 F Pulse Rate 45 58 57 Respiratory 20 20 18 Rate Blood Pressure 144/61 145/71 157/70 (mmHg) O2 Sat by Pulse 97 100 99 Oximetry Oxygen Devices in Use Now: Nasal Cannula - 4L Appearance: NAD, sitting up in a chair Ears/Nose/Mouth/Throat: Mucous Membranes Moist Respiratory: Symmetrical Chest Expansion and Respiratory Effort Skin: - - See skin note below Neurological: Alert and Oriented x 3 Nutrition: Taking PO's Result Diagrams: 04/17/19 07:23 04/16/19 06:07 Microbiology and Other Data: Microbiology 04/19/19 13:25 Gram Stain - Final Pleural Fluid 04/13/19 20:13 Aerobic Blood Culture - Final Blood Venous No Growth Day 5 Anaerobic Blood Culture - Final No Growth Day 5 04/13/19 20:13 Aerobic Blood Culture - Final Blood Venous No Growth Day 5 Anaerobic Blood Culture - Final No Growth Day 5 04/15/19 09:30 Gram Stain - Final Sputum Expectorated Sputum Culture - Final YEAST Normal [place] 04/13/19 23:31 Legionella Urinary Antigen - Final Urine Negative Legionella Antigen Streptococcus pneumoniae Ag Screen - Final Positive S. Pneumo Antigen Diagnostic Imaging: Exam: 08/18/18 - VL ANK/BRACHIAL INDICES IMPRESSION: Ankle-brachial index of 1.3 on the right and 1.15 on the left although the total brachial index on the right is 0.38 and on the left is 0.40. Waveforms appear triphasic. The total brachial indices are abnormal. This may be a sign of peripheral arterial disease. Exam 08/26/18 - CTA ABD aorta & Runoff IMPRESSION: 1. Widespread partially calcified, mixed attenuation atherosclerosis as described in more detail in the body the report. The more severe foci and/or clinically relevant foci are as follows: * There is likely high-grade stenosis at the origin of the celiac trunk due to calcified atherosclerosis and approximately 50% degree stenosis at the origin of the superior mesenteric artery. Please correlate to any postprandial pain or unintentional weight loss characteristic of mesenteric ischemia. If clinically warranted further characterization of the mesenteric arteries can be made with duplex sonography. * There is mixed attenuation atherosclerosis at the mid-level and distal superficial femoral arteries bilaterally but luminal patency is maintained into the infrapopliteal arteries with 2 vessel runoff provided by the VICK and [employer]. If there is a high clinical concern that the patient's wound healing is being exacerbated by arterial insufficiency catheter arteriography is necessary to better characterize the degree of stenoses in the SFA. 2. The intravenously injected contrast, presumably injected into the left upper extremity, is seen filling the IVC, renal vein and paravertebral venous plexus indicating left-sided central venous occlusion. The CT of the chest dated April 30, 2011 depicts stenosis and/or potential occlusion of the left subclavian vein. Please correspond to functionality of the power PowerPort and signs of left-sided chronic venous occlusion. 3. Additional chronic and degenerative changes described in the body the report. Skin Deviation Note - Skin Deviation Findings Right medial ankle - The wound measures, 7.3 cm x 5.5 cm x 0.2 cm. The wound base is mostly yellow slough, there is serous drainage from the wound. There is subcutaneous tissue exposed. The surrounding skin is intact with mild erythema. Left medial ankle - The wound measures, 6.1 cm x 5 cm x 0.1 cm. The wound base is pink granulation tissue with yellow slough. There is subcutaneous tissue exposed. The surrounding skin is intact with mild erythema. There is serous drainage from the wound. Not evaluated per request of patient: 2 open areas to the right LE, Multiple open areas to the upper extremities. Assessment/Plan: Ms. Denise is a 73 yo female with PMH significant for scleroderma, Raynaud's, calcinosis, hypothyroidism, GERD, pulmonary HTN, CVA, and chronic wounds to the extremities; who presented to the hospital with complaints of weakness. She was found to have septic shock secondary to right sided PNA and presented to the hospital with multiple chronic open areas on her extremities. 1. Bilateral medial malleolus chronic wounds. Based on the location of the wounds there may be a component of pressure injury to these areas and they would be stage 3 pressure injuries, also suspect these are due to calcinosis. Continue dressing changes per the wound clinic, apply muprocion, followed by Optifoam AG+ (cut to size of the wound) and use Hypafix tape. Change the dressing every 4 days or as needed for drainage. Dressings may be changed by Pt' s spouse. 2. Multiple wounds. Right knee: Apply muprocion, followed by Optifoam AG+ (cut to size of the wound) and use Hypafix tape. Change the dressing every 4 days and as needed for drainage. Left hand 1st digit, Right Anterior Lower Leg, Right Lateral Hand: Apply Bactroban twice daily. Left Elbow: Apply muprocion, followed by Optifoam AG+ (cut to size of the wound) and use Hypafix tape. Change the dressing every 4 days. 3. Scleroderma. Advanced disease. 4. Diet. Regular mechanical ground. 5. Code Status. Full Code 6. Disposition. Inpatient, disposition per primary medicine team. TIME SPENT: Time for this wound consultation was 25 minutes and 15 minutes was spent with the patient and discussing past medical history, wound care; assessing, measuring, and photographing the wounds; and removing the old dressings. Wound Problem/Plan Is Patient a Wound Clinic Patient: Yes - [facility] - Dr. Galloway Next Visit: 04/21/19 Current Treatment: Metronidazole and Muprocion applied to an Optifoam AG+, change as needed Comment: Wound clinic notes recomend mupirocin Attending: Brittni Shannon
--- NOTE | 2019-04-19 19:38 | CONS ---
PULMONARY CONSULTATION REPORT: DATE OF CONSULT: 04/19/19 CONSULTATION REQUESTED BY: Katya Linda NP REASON FOR CONSULTATION: Evaluation of pleural effusion. HISTORY OF PRESENT ILLNESS: The patient is a 73-year-old female with advanced scleroderma with calcinosis, digital ulceration, large ulcerations overlying the medial malleoli bilaterally in the right knee, as well as history of hypothyroidism, pulmonary hypertension, and CVA, who presented to the emergency room from urgent care with complaints of weakness and fever. The patient has been having poor appetite, decreased energy, abdominal discomfort and decreased appetite and presented for further evaluation. Denied fevers or chills. Has been having a cough with yellow phlegm. The patient is also with mild dyspnea. She was found to have a fever of 100.2 on arrival in the emergency room. Further evaluation include a chest x-ray and CT scan of the chest. I personally reviewed the chest x-ray and CT of the chest. The patient is with evidence of bilateral pleural effusions, larger on the right side with basal atelectasis. No evidence of filling defects in pulmonary arteries. 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 The patient is with evidence of manifestations of scleroderma. The patient was found to be requiring O2. The patient was started on empiric treatment for pneumonia. Leukocytosis was trending down and she remained afebrile. Strep pneumo antigen was positive. Legionella was negative. She was initiated on ceftriaxone and doxycycline. O2 requirements have been decreasing. Pulmonary consultation was required for thoracentesis. PAST MEDICAL HISTORY: 1. Scleroderma, not appropriately treated with several skin changes. 2. Raynaud's. 3. Calcinosis. 4. Chronic wounds of the diseased medial malleoli, right knee. 5. Hypothyroidism. 6. GERD. 7. Pulmonary hypertension. 8. CVA in 2016. PAST SURGICAL HISTORY: 1. TAVR in 2014. 2. Port placement. 3. Tonsillectomy. 4. Bilateral hand surgeries. MEDICATIONS: 1. Ambien. 2. Zinc. 3. Protonix. 4. Mupirocin. 5. Magnesium oxide. 6. Levothyroxine. 7. Plavix. 8. Calcium. 9. Aspirin. ALLERGIES: ERYTHROMYCIN, DENOSUMAB, HONEY. FAMILY HISTORY: Mother with dementia. Dad with pulmonary artery disease. SOCIAL HISTORY: Nonsmoker, drinks a glass of wine at night. REVIEW OF SYSTEMS: All 12-system review has been as per HPI. PHYSICAL EXAMINATION: GENERAL: The patient is in bed in no apparent distress, eating lunch. VITAL SIGNS: Temperature 97.3, pulse 57 beats per minute, respiratory rate 18 per minute, O2 sat 99% on 4 L, blood pressure 157/70. HEENT: Pupils are equal and reactive to light. Mucous membranes are moist. LUNGS: Diminished air entry bilaterally, right greater than left. CARDIOVASCULAR: S1 and S2 present. MUSCULOSKELETAL: Wounds to right knee and ankles, contracted fingers and skin changes. NEUROLOGIC: Alert, awake, oriented x3. No focal deficits. DIAGNOSTIC STUDIES/LAB DATA: WBC count 8.3, hemoglobin 10.3, hematocrit 31, platelets 309,000. Sodium 138, potassium 4, chloride 109, bicarb 20, BUN 16, creatinine 0.40. Pleural fluid analysis shows neutrophil predominant fluid also with increased lymphocytes. Other tests are pending. CT of the chest: As described above in HPI. IMPRESSION AND RECOMMENDATIONS: The patient is 73-year-old with history of scleroderma, admitted with worsening shortness of breath, was found to have pneumonia in the right lung and pleural effusions bilaterally. The patient had diagnostic and therapeutic thoracentesis on the right side with removal of 500 mL of pleural fluid. Fluid was clear, straw colored. The patient tolerated the procedure well. The patient reported symptomatic benefit after the procedure. Rest of the pleural fluid studies are pending at this time. Agree with current antibiotics choice, awaiting pleural fluid cultures. Thank you for allowing me to participate in the care of your patient. Will follow up with you. [id number]/[facility] #: [id number] DIEGO
--- NOTE | 2019-04-19 21:59 | PRO ---
THORACENTESIS REPORT: DATE OF PROCEDURE: 04/19/19 - ROOM #413 PRE-PROCEDURAL DIAGNOSIS: Bilateral pleural effusion, large on the right side. ANESTHESIA: Local anesthesia with 1% lidocaine. DESCRIPTION OF PROCEDURE: Informed consent was obtained from the patient prior to the procedure after all the risks and benefits were thoroughly explained. Appropriate time-out was performed and agreed on by attending staff prior to the procedure. The patient was sitting up and leaning forward during the procedure. A portable ultrasound was utilized at the bedside to localize moderate amounts of fluid on the right side with basal atelectasis. Strict aseptic precautions and barrier needs were utilized. Area was disinfected with chlorhexidine. Sterile drape was placed. After ultrasound localization, appropriate pictures were taken. Local anesthesia was achieved with 1% lidocaine transdermally, transcutaneously, intradermally down into the pleural space taking precautions. A #11 scalpel blade was used to make stab incision. CareFusion 8-Azeri thoracentesis catheter was subsequently inserted under manual suction taking precautions. Catheter was left in place and needle was removed. 500 mL of pleural fluid was subsequently drained under manual suction. Catheter was subsequently removed and sterile Band-Aid was applied. The patient tolerated the procedure well. The patient declined postprocedural chest x-ray. Fluid was sent to the lab for cytological, hematological, and biochemical testing. [id number]/[facility] #: [id number] [facility]PITALMaura
[2019-04-19] MEDS: Zolpidem TAB* 5 MG PO PRN (22:47)
[2019-04-20] MEDS: cefTRIAXone(*) 1 GM in NS 0.9% 50 ML* 50 ML IVPB SCH (03:06)
[2019-04-20] MEDS: Levothyroxine TAB* 50 MCG TAB PO SCH (06:06)
[2019-04-20] MEDS: predniSONE TAB* 20 MG PO SCH (09:22)
[2019-04-20] MEDS: Pantoprazole TAB * 40 MG TAB PO SCH (09:23)
[2019-04-20] MEDS: Clopidogrel TAB* 75 MG PO SCH (09:23)
[2019-04-20] MEDS: Aspirin EC TAB* 81 MG TAB.EC PO SCH (09:23)
[2019-04-20] MEDS: Mupirocin 2% OINT* TUBE TOPICAL SCH (09:23)
[2019-04-20] MEDS: DOXYcycline CAP(*) 100 MG PO SCH (09:23)
[2019-04-20 14:53] LABS: Lactate Dehydrogenase, BF 112 U/L
--- NOTE | 2019-04-20 14:59 | DS ---
CC: Dr. Destiny Bird; Dr. Del Real; Dr. Daja Galdamez of Pulmonology.* DISCHARGE SUMMARY: DATE OF ADMISSION: 04/14/19 DATE OF DISCHARGE: 04/20/19 PRIMARY CARE PROVIDER: Dr. Destiny Bird. LEADLIGHTER: Dr. Del Real. MY ATTENDING FOR TODAY: Dr. Chapman.* (DICTATED BY SARITHA NEVAREZ NP) HOSPITAL COURSE: Please refer to the admitting H and P dated 04/14/19, but in short, Ms. Denise is a 73-year-old female patient with a complex medical history including advanced scleroderma with calcinosis and chronic wounds, also a history of hypothyroidism, pulmonary hypertension, CVA in the past. She presented to the emergency department with fever and weakness. After going to the urgent care and being evaluated, she was found to have a right-sided pneumonia and severe sepsis. The patient was admitted and treated for her right- sided pneumonia. She had a positive Strep pneumo antigen on her urine. She was started empirically on ceftriaxone and doxycycline. She did make progress for the first several days of her hospitalization; however, on 04/16/19, the patient had a larger oxygen requirement and had some hypoxia. She was placed on 15 L and was sent for CTA of the chest to rule out pulmonary embolus. CTA was negative for PE. She was found to have a bilateral pleural effusions with the right worse than the left. She was weaned down to 4 to 6 L of oxygen. She was continued on her antibiotics. Her blood cultures were negative. At that point, her fevers had resolved; however, her hypoxia did persist. She was placed on prednisone. She had a minimal change after 24 hours of steroids as well. At that point, Dr. Galdamez was consulted as her pleural effusion on the right side in particular seemed to be increasing in size. Dr. Galdamez evaluated the patient and the CT scan and determined that the patient would benefit from a therapeutic thoracentesis. She underwent thoracentesis on the right side on 04/19/19. Approximately 500 mL of straw-colored fluid was removed from the pleural space on the right. The patient had no complications on this procedure. Fluid was sent for Cytology. There are no cultures back from her Cytology. Her initial report shows no growth at this point. The patient did report feeling less short of breath immediately after the procedure. She did decline having postprocedure chest x-ray; however, she did not have any further complications. Her oxygen requirement less than 24 hours postprocedure is now zero. She is satting at 99% on room air and was ready for discharge on the morning of 04/20/19. REVIEW OF SYSTEMS: On the day of discharge, the patient denies any fever, fatigue, or chills. No weakness. No acute shortness of breath. No chest pains. No abdominal pains. No nausea, no vomiting. No urinary complaints. No arthralgias or myalgias and no further constitutional complaints. PHYSICAL EXAM: She is well-appearing in no acute distress. Her vital signs are blood pressure 128/58, heart rate is 53, respiratory rate 18, O2 saturation 99% on room air with a temperature of 97.5. HEENT: The patient is atraumatic, normocephalic. Oral mucosa is slightly dry. Skin around the face is quite taut , especially around the lip area secondary to her scleroderma. Cardiovascular: S1, S2 present. She does have a murmur present, grade 3/6. Rate and rhythm are currently regular. Lungs are clear the apices bilaterally, slightly diminished at the right base, otherwise clear with no adventitious breath sounds. Abdomen is soft, nontender, and nondistended. Positive bowel sounds in all 4 quadrants. was deferred. Musculoskeletal: She has bilateral contractures with some minor wounds at the digits bilaterally of the fingers and hands with some discoloration of the digits, again secondary to her scleroderma. Lower Extremities: She has a wound to the anterolateral aspect of the right knee. Dressing is clean, dry, and intact. Also, bilaterally the medial malleoli, there are 2 larger wounds. Dressings are both clean, dry, and intact. There are several other areas of contractures with smaller localized wounds, again secondary to her advanced scleroderma with calcinosis. She otherwise has distal pulses palpable. She does have some limited range of motion at baseline. Neurologic: She is alert and oriented x3 with no neural focal deficits noted. Psychiatric: She is cooperative and appropriate. DIAGNOSTIC STUDIES/LAB DATA: WBC is 8.3, RBC is 3.47, hemoglobin 10.3, hematocrit 31, platelets 309. Sodium 138, potassium 4.0, chloride 109, CO2 20. BUN 16, creatinine 0.40, GFR is 156.9. Glucose 94, calcium 8.3. Urinalysis is negative for any acute infective process. INR 1.23. APTT 33.6. D-dimer on 04/16/19 was 1050. Pleural fluid initial draw volume was approximately 500 mL, volume sent for cytology was 8.5 mL, color yellow, appearance cloudy, WBCs 397, RBCs 596, total cell count 100, neutrophils 44, lymphocytes 36, monocytes 20, other cells 1, fluid cell count review is pending. Microbiology: Positive Strep pneumo antigen, negative legionella antigen. Sputum culture has yeast and normal susan. Gram stain of the pleural fluid is currently pending, but there is no growth on day 1. Imaging: CTA of the chest dated 04/16/19 shows limited exam without compelling evidence for PE, stigmata of pulmonary arterial hypertension, likely attributed well to the patient's history of scleroderma, evidence for probable chronic high - grade partial thrombosis of the left subclavian and brachiocephalic veins with well- developed collateral network. Venous catheter from the left chest port predisposes to thrombosis. Large right and moderate left pleural effusion with proportionate atelectasis are grossly new compared with prior exam. Additionally, there is airspace consolidation involving the right lower lobe which may represent pneumonia similar to prior exam. Gastrointestinal and musculoskeletal manifestations of scleroderma as noted. DISCHARGE DIAGNOSES: 1. Severe sepsis secondary to Streptococcus pneumoniae. 2. Bilateral pleural effusions. 3. Acute hypoxic respiratory failure, resolved. SECONDARY DIAGNOSES: 1. Advanced scleroderma with calcinosis. 2. Hypothyroidism. 3. History of cerebrovascular accident. 4. History of Raynaud's. 5. Gastroesophageal reflux disease. 6. Chronic wounds of the fingers, right knee, and medial malleoli. 7. 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 MEDICATIONS: Home medications: 1. Ambien 5 mg 1 tablet p.o. at bedtime. 2. Zinc 25 mg p.o. daily. 3. Protonix 40 mg p.o. daily. 4. Bactroban 2% topical to wounds 2 times a day. 5. Magnesium 250 mg p.o. daily. 6. Synthroid 50 mcg p.o. daily. 7. Plavix 75 mg daily. 8. Calcium and vitamin D 1 tablet p.o. b.i.d. 9. Aspirin 81 mg daily. New medications: 1. Prednisone taper 30 mg a day, taper by 10 mg q.2 days until complete after 6 days. 2. Doxycycline 100 mg p.o. b.i.d. for 1 and a half more days, to be completed on 04/21/19. ACTIVITY: Progress activity as tolerated. DIET: Regular as tolerated. FOLLOWUPS: The patient was instructed to follow up with Dr. Destiny Bird, her primary care provider, in the next 4 to 7 days. She should also follow up with Dr. Del Real, attorney at law, as needed. At this point, as her pneumonia and pleural effusions are clearing, there is no need for her to follow up with Dr. Galdamez as an outpatient. If Dr. Bird feels that she has a need for an additional pulmonology services, she can be referred to Dr. Galdamez as an outpatient. The patient was discharged to home in the care of her in stable condition. All questions were answered. The patient stated understanding of her discharge instructions, medications, and followup. TIME SPENT: A 35 minutes on discharge planning. SARITHA NEVAREZ NP [id number]/[facility] #: [id number] [place]
[2019-04-20 16:48] VITALS: BP 165/69
== END 2019-04-20 14:35 | disposition home or self-care (01) | DRG 871 ==
LOC: ED 19:10 → MED 04-14 00:09
PROVIDERS: ADMIT Hospitalist; ATTEND Internal Medicine
PROC: 0W993ZZ Drainage of Right Pleural Cavity, Percutaneous Approach (ICD-10-PCS; principal; 2019-04-19)
DX: A40.3 Sepsis due to Streptococcus pneumoniae (principal); R65.21 Severe sepsis with septic shock; J18.1 Lobar pneumonia, unspecified organism; J96.21 Acute and chronic respiratory failure with hypoxia; J90 Pleural effusion, not elsewhere classified; I82.B22 Chronic embolism and thrombosis of left subclavian vein; I82.722 Chronic embolism and thrombosis of deep veins of left upper extremity; L97.819 Non-pressure chronic ulcer of other part of right lower leg with unspecified severity; L97.319 Non-pressure chronic ulcer of right ankle with unspecified severity; L97.929 Non-pressure chronic ulcer of unspecified part of left lower leg with unspecified severity; K56.609 Unspecified intestinal obstruction, unspecified as to partial versus complete obstruction; M34.9 Systemic sclerosis, unspecified; K21.9 Gastro-esophageal reflux disease without esophagitis; M81.0 Age-related osteoporosis without current pathological fracture; G43.909 Migraine, unspecified, not intractable, without status migrainosus; R40.2363 Coma scale, best motor response, obeys commands, at hospital admission; R40.2143 Coma scale, eyes open, spontaneous, at hospital admission; R40.2253 Coma scale, best verbal response, oriented, at hospital admission; E83.59 Other disorders of calcium metabolism; E03.9 Hypothyroidism, unspecified; I27.20 Pulmonary hypertension, unspecified; Z86.73 Personal history of transient ischemic attack (TIA), and cerebral infarction without residual deficits; Z79.02 Long term (current) use of antithrombotics/antiplatelets; Z95.2 Presence of prosthetic heart valve; Z88.1 Allergy status to other antibiotic agents; Z88.8 Allergy status to other drugs, medicaments and biological substances; Z91.018 Allergy to other foods; Z82.0 Family history of epilepsy and other diseases of the nervous system; Z82.49 Family history of ischemic heart disease and other diseases of the circulatory system; Z98.1 Arthrodesis status; Z87.891 Personal history of nicotine dependence; Z72.89 Other problems related to lifestyle
CPT/HCPCS: 36415; 71045; 71260; 71275; 74177; 76604; 80048; 80053; 81003; 82550; 82945; 83605; 83615; 83986; 84157; 84484; 85025; 85379; 85610; 85730; 86140; 87040; 87070; 87205; 87899; 89051; 93005; 99284; A9270-GY; J0696; J1650; J2543; J3370; J7512; Q9967